=== PATIENT | female | born 1980 | race Caucasian/White ===

== ENCOUNTER → 2017-08-06 09:13 | Outpatient (CLI) | payer OTHER, SELFPAY ==
[2017-08-06 11:20] LABS: hCG Titer Quant., Serum 3653 mIU/mL (<9 non-preg)
[2017-08-06 20:30] LABS: Chlamydia Trachomatis by PCR Negative (Negative); Neisserai gonorrhoeae by PCR Negative (Negative); Probe Check PASS; Sample Adequacy Control PASS; Specimen Processing Control PASS
[2017-08-11 11:07] LABS: HPV APTIMA, High Risk Negative (Negative)
== END ==
PROVIDERS: Visit Provider Obstetrics & Gynecology
DX: Z12.4 Encounter for screening for malignant neoplasm of cervix (principal); Z34.90 Encounter for supervision of normal pregnancy, unspecified, unspecified trimester
CPT/HCPCS: 36415; 84702; 87086; 87088; 87491; 87591; 88175; G0145

== ENCOUNTER → 2017-08-08 08:22 | Outpatient (CLI) | payer OTHER, SELFPAY ==
[2017-08-08 10:25] LABS: hCG Titer Quant., Serum 4265 mIU/mL (<9 non-preg)
== END ==
PROVIDERS: Visit Provider Obstetrics & Gynecology
DX: Z34.90 Encounter for supervision of normal pregnancy, unspecified, unspecified trimester (principal)
CPT/HCPCS: 84702

== ENCOUNTER → 2017-08-10 15:04 | Outpatient (CLI) | payer OTHER, SELFPAY ==
[2017-08-10 16:28] LABS: hCG Titer Quant., Serum 4724 mIU/mL (<9 non-preg)
== END ==
PROVIDERS: Visit Provider Obstetrics & Gynecology
DX: O20.0 Threatened abortion (principal); Z3A.00 Weeks of gestation of pregnancy not specified
CPT/HCPCS: 36415; 84702; 86850; 86900

== ENCOUNTER → 2018-01-18 08:58 | Outpatient (CLI) | payer OTHER, SELFPAY ==
[2018-01-21 09:34] LABS: Hemoglobin A1c 5.5 % (4.2-6.3)
== END ==
PROVIDERS: Family Provider Family Medicine; PCP Family Medicine; Visit Provider Family Medicine
DX: Z00.00 Encounter for general adult medical examination without abnormal findings (principal)
CPT/HCPCS: 83036

== ENCOUNTER → 2020-01-08 08:56 | Outpatient (CLI) | payer OTHER, SELFPAY ==
[2020-01-08 08:28] VITALS: BMI 38.1
[2020-01-08 12:19] LABS: Absolute Lymphocyte Count 2.43 X10^3/uL (0.83-4.51); Absolute Neutrophil Count 3.2 X10^3/uL (2.0-7.7); Basophil# 0.02 X10^3/uL; Basophil% 0.3 % (0-1); Eosinophil# 0.15 X10^3/uL; Eosinophils% 2.4 % (0-5); Hemoglobin 13.9 g/dL (12.0-15.0); Lymphocyte # 2.43 X10^3/ul; Lymphocyte % 38.8 % (19-41); Mean Corp Hgb Conc 32.3 g/dL (32-36); Mean Corpuscular Hgb 30.2 pg (27.0-32.0); Mean Corpuscular Volume 93.5 fL (81-99); Mean Platelet Vol. 10.4 fl (6.2-12.0); Monocyte# 0.41 X10^3/uL; Monocyte% 6.5 % (0-10); NRBC Flagged by Analyzer 0 % (0-5); Neutrophil # 3.24 X10^3/uL (2.7-7.7); Neutrophil % 51.8 % (47-70); Platelet Count 237 K/mm3 (150-450); RBC Distribution Width CV 11.8 % (11.6-14.6); RBC Distribution Width SD 39.8 fl (35.1-43.9); White Blood Count 6.3 K/mm3 (4.4-11.0)
[2020-01-08 12:21] LABS: Color, Urine Yellow (Yellow); Glucose, Dipstick Normal (Normal); Ketone-Dipstick Negative (Negative); Leukocyte Esterase-Dipstick 100 /ul (Negative); Nitrite-Dipstick Negative (Negative); Occult Blood-Urine Negative /ul (Negative); Protein-Dipstick 15 mg/dl (Negative); Specific Gravity, Urine 1.025 (1.002-1.030); Urine Bilirubin Dipstick Negative (Negative); Urine Clarity Sl. Cloudy (Clear); Urine Urobilinogen Normal (Normal)
[2020-01-08 12:51] LABS: ALB/GLOB Ratio 1.1 RATIO (0.9-2.4); AST(SGOT) 19 U/L (15-37); Alanine Aminotransfer ALT/SGPT 35 U/L (13-56); Albumin, Serum 3.9 g/dL (3.2-5.0); Alkaline Phosphatase 67 U/L (45-117); Anion Gap 7 (5-15); BUN 14 mg/dL (7-18); BUN/Creat Ratio 13.9 RATIO (10-20); Bilirubin, Direct 0.07 mg/dL (0.00-0.30); Calcium,Total 8.6 mg/dL (8.5-10.1); Chloride 107 mmol/L (98-107); Cholesterol 252 mg/dL (200); Creatinine, Serum 1.01 mg/dL (0.55-1.02); EST Glomerular Filtration Rate 64 mL/min (>60); Est Glom Filt Rate - Afr Amer 78 mL/min (>60); Globulin 3.5 g/dL (2.2-4.2); Glucose 110 mg/dL (74-106); High Density Lipoprotein 36 mg/dL; LDH 194 U/L (84-246); Potassium 4.2 mmol/L (3.5-5.1); Protein, Total 7.4 g/dL (6.4-8.2); Sodium Level 139 mmol/L (136-145); Triglycerides 475 mg/dL; Uric Acid 6.5 mg/dL (2.6-6.0)
[2020-01-08 13:28] LABS: Hemoglobin A1c 5.6 % (3.8-5.6)
== END ==
PROVIDERS: PCP Internal Medicine; Referring Provider Internal Medicine; Visit Provider Internal Medicine
DX: R73.03 Prediabetes (principal)
CPT/HCPCS: 83036

== ENCOUNTER 2021-09-29 08:06 | Outpatient (RCR) | payer OTHER, SELFPAY | END 2021-10-04 23:59 | LOC: NS 08:06 | PROVIDERS: PCP Internal Medicine; Referring Provider Internal Medicine; Visit Provider Internal Medicine | DX: Z71.3 Dietary counseling and surveillance (principal); E66.9 Obesity, unspecified; Z68.41 Body mass index [BMI] 40.0-44.9, adult | CPT/HCPCS: 97802 ==

== ENCOUNTER → 2021-10-01 | Outpatient (CLI) | payer OTHER, SELFPAY ==
--- NOTE | 2021-10-01 16:45 | RAD_ITS ---
STUDY: X-RAY - LEFT FOOT CLINICAL: Female, 41 years old. PLANTAR FASCIITIS TECHNIQUE: 3 view(s) of the foot. COMPARISON: None. FINDINGS: Normal talus, calcaneus, and tarsal bones. Small plantar posterior calcaneal enthesophytes. Normal visualized subtalar, talonavicular, calcaneocuboid, tarsal and tarsometatarsal articulations. Normal metatarsi. There is degenerative arthrosis of the metatarsophalangeal joint of the hallux with a hallux valgus deformity. Normal tibial and fibular sesamoid bones. Normal interphalangeal joint of the great toe. Normal phalanges of the great toe. Normal second through fifth metatarsophalangeal joints. Normal interphalangeal joints and phalanges of the lesser toes. The soft tissue structures are unremarkable. RAD/Foot min 3 Views IMPRESSION: Moderate hallux valgus deformity. Electronically Signed: John Amos MD at 8:24 EDT ,
--- NOTE | 2021-10-01 16:45 | RAD_ITS ---
STUDY: X-RAY - RIGHT FOOT CLINICAL: Female, 41 years old. PLANTAR FASCIITIS TECHNIQUE: 3 view(s) of the foot. COMPARISON: None. FINDINGS: Normal talus, calcaneus, and tarsal bones. Small plantar and posterior calcaneal enthesophytes. Normal visualized subtalar, talonavicular, calcaneocuboid, tarsal and tarsometatarsal articulations. Normal metatarsi. There is degenerative arthrosis of the metatarsophalangeal joint of the hallux with a hallux valgus deformity. Normal tibial and fibular sesamoid bones. Normal interphalangeal joint of the great toe. Normal phalanges of the great toe. Normal second through fifth metatarsophalangeal joints. Normal interphalangeal joints and phalanges of the lesser toes. The soft tissue structures are unremarkable. RAD/Foot min 3 Views IMPRESSION: Mild hallux valgus deformity. Electronically Signed: John Amos MD at 17:17 EDT ,
--- NOTE | 2021-10-01 16:50 | RAD_ITS ---
STUDY: X-RAY - RIGHT ANKLE REASON FOR EXAM: Female, 41 years old. INSTABILITY TECHNIQUE: 3 view(s) of the ankle. COMPARISON: None. FINDINGS: Normal visualized distal tibia and fibula. Normal medial and lateral malleoli. Normal tibiotalar articulation and ankle mortise. Normal visualized talus and calcaneus. The visualized subtalar, talonavicular, calcaneocuboid and tarsal articulations are normal. The soft tissue structures are unremarkable. RAD/Ankle min 3 Views IMPRESSION: Normal x-ray examination of the ankle. Electronically Signed: John Amos MD at 8:24 EDT ,
== END | disposition home or self-care (01) ==
LOC: RAD 16:44
PROVIDERS: PCP Internal Medicine; Referring Provider Podiatrist; Visit Provider Podiatrist
DX: M72.2 Plantar fascial fibromatosis (principal); M20.11 Hallux valgus (acquired), right foot; M20.12 Hallux valgus (acquired), left foot; M25.371 Other instability, right ankle
CPT/HCPCS: 73610; 73630

== ENCOUNTER 2021-10-15 07:46 | Outpatient (RCR) | payer OTHER, SELFPAY | END 2021-11-04 23:59 | LOC: NS 07:46 | PROVIDERS: PCP Internal Medicine; Referring Provider Internal Medicine; Visit Provider Internal Medicine | DX: Z71.3 Dietary counseling and surveillance (principal); E66.9 Obesity, unspecified; Z68.41 Body mass index [BMI] 40.0-44.9, adult | CPT/HCPCS: 97803 ==

== ENCOUNTER 2021-11-18 07:30 | Outpatient (RCR) | payer OTHER, SELFPAY | END 2021-12-04 23:59 | LOC: NS 07:30 | PROVIDERS: PCP Internal Medicine; Referring Provider Internal Medicine; Visit Provider Internal Medicine | DX: Z71.3 Dietary counseling and surveillance (principal); E66.9 Obesity, unspecified; Z68.41 Body mass index [BMI] 40.0-44.9, adult | CPT/HCPCS: 97803 ==

== ENCOUNTER → 2022-03-16 | Outpatient (CLI) | payer OTHER, SELFPAY ==
[2022-03-17 14:42] LABS: Hemoglobin A1c 5.9 % (3.8-5.6)
== END | disposition home or self-care (01) ==
LOC: BIMLAB 03-17 14:04
PROVIDERS: PCP Internal Medicine; Visit Provider Internal Medicine
DX: R73.01 Impaired fasting glucose (principal)
CPT/HCPCS: 83036

== ENCOUNTER 2023-05-28 07:32 | Day surgery (SDC) | payer OTHER, SELFPAY ==
[2023-05-28 07:50] VITALS: BP 158/115; PULSE 93; RESP 16; TEMP 36.2; O2SAT 99; BMI 39.8
--- NOTE | 2023-05-28 09:20 | LES_PTH ---
PATIENT: DON JONES LOC: [facility] – [place] U#:[id number] AGE/SX: 42/F ROOM: RE05/28/[address]: Dr. Radha Riojas MD : 1980 BED: DIS: 05/28/2023 SPEC #: [id number] RECD: 05/28/23 12:33 STATUS: SHAYNA CAS #: [id number] PATTI: 05/28/23 09:[address]: Radha Riojas DEPT: SURGICAL PATHOLOGY RECD BY: Ladonna Zavaleta ENTERED: 05/28/23 12:35 SP TYPE: Lesion OTHR DR: Dr. Tim Fuentes MD Tissues: Skin of upper extremity and shoulder Procedures: Surgery Specimen Level IV HEADER OPERATION: Excision lesion right posterior shoulder (2.5 cm) PRE-OP DIAGNOSIS: Neoplasm of shoulder TISSUE SUBMITTED: Right posterior shoulder lesion MICROSCOPIC DIAGNOSIS Right posterior shoulder lesion, excisional biopsy: Dermatofibroma. SJ:bhavani 06/01/2023 MICROSCOPIC DESCRIPTION Slides are reviewed. GROSS DESCRIPTION Received in fixative is one container labeled with the patient's name and designated right posterior shoulder lesion. The specimen consists of a round piece of wallace-brown skin measuring 1.3 x 1.3 cm and up to 0.4 cm in thickness. The specimen is inked, serially sectioned and submitted entirely in one cassette. / SWETA:bhavani 05/28/2023 TC:1 [facility]: [id number]
--- NOTE | 2023-05-28 09:56 | HP.PCM_ITS ---
HPI - General General Date of Service: 05/28/23 Chief Complaint: Lesion of right shoulder [facility] Narrative DON CLARK, is a 42 F who presents with a progressively growing lesion of the right posterior shoulder. She presents for excision of the site and submission for pathologic evaluation. [facility] Medical History (Updated 04/20/23 @ 15:[address] Radha Riojas MD) Elevated fasting blood sugar Elevated liver enzymes Health care maintenance Hyperlipidemia Hypertension Left foot pain Metabolic syndrome Morbid obesity Obesity (BMI 30-39.9) Home Medications NK 05/28/23 [History Last Taken Unknown] Allergy/AdvReac Type Severity Reaction Status Date / Time No Known Allergies Allergy Verified 05/28/23 07:49 Family History Father Heart disease Diabetes Grandfather Endometriosis Heart disease Grandmother Cancer Surgical History History of wisdom tooth extraction, class II edentulism Social History (Updated 04/20/23 @ 13:52 by Gabby Benitez) Smoking Status: Never smoker Tobacco: How many years used: 15 alcohol intake: never details: on ocassion substance use type: does not use caffeine: No what type of physical activity do you participate in: walking seatbelt use: always do you feel safe at home: Yes additional social history: Pt denies vaping, denies edibles, denies aspirin use, denies ibuprofen Vital Signs Vital Signs Vital Signs: 05/28/23 07:50 05/28/23 07:50 Temperature 97.2 F L Temperature Source Temporal Pulse Rate 93 Respiratory Rate 16 Respiratory Pattern Normal Blood Pressure 158/115 H Blood Pressure Mean 129 Blood Pressure Source Monitor Blood Pressure Position Semi-Fowlers Pulse Ox 99 Oxygen Delivery Method Room Air Weight Weight: 239 lb 6.752 oz Body Mass Index (BMI) 39.8 Physical Exam Const alert, oriented x3, no apparent distress, average body habitus and well nourished General Appearance: cooperative and well developed Orientation / Consciousness: oriented to person, oriented to place and oriented to time HEENT head/scalp atraumatic, external ears normal and external nose normal Head and Scalp: normal to inspection, normocephalic, atraumatic and abrasion Face and Sinus: normal facial exam and face symmetric Nose: external nose normal External Ear: external ears normal External Auditory Canal: EAC's normal Mouth: lips normal Eyes PERRL, EOMs intact bilaterally and conjunctivae normal General Eye: normal appearance of both eyes Periorbital: periorbital findings normal Eyelid: eyelids normal Conjunctiva: conjunctiva normal Pupil: PERRL Neck full ROM Lymph Lymphatic: no lymphadenopathy noted Chest inspection of chest normal Breast/Axilla Palpation: no axillary lymphadenopathy Resp normal respiratory effort, normal air movement and clear to auscultation bilaterally Auscultation: clear to auscultation bilaterally Cardio regular rate, regular rhythm, S1 normal heart sound, S2 normal heart sound and no murmurs Rate: regular rate Rhythm: regular rhythm GI soft to palpation and non-tender Extremity normal to inspection and full ROM General Extremity: normal exam except as noted Skin Skin Narrative: Pigmented firm intradermal skin lesion of the posterior right shoulder General Skin Exam: turgor normal Neuro oriented x3, CN's II-XII intact bilaterally, moves all extremities, no focal motor deficits and no sensory deficits noted Sensorium / Orientation: awake, alert, oriented to person, oriented to place and oriented to time Speech: speech normal Gait (Neuro): normal gait Psych mental status grossly normal Attention / Concentration: concentration grossly intact Memory / Cognition: memory grossly intact Assessment & Plan Assessment/Plan (1) Neoplasm of uncertain behavior of skin: PLAN: Plan For excision skin lesion and submission for pathologic evaluation.
[2023-05-28 09:58] VITALS: BP 138/97; BP 143/98; O2SAT 100; O2SAT 98; O2SAT 99
[2023-05-28 10:18] VITALS: BP 130/88; BP 138/97; O2SAT 100; O2SAT 98; O2SAT 99
[2023-05-28] MEDS: Lidocaine 1% /Epi 1:100 9 ML, Sodium Bicarbonate 1 MEQ OPERA.SITE (10:39)
--- NOTE | 2023-05-28 10:43 | DCINST_ITS ---
Discharge Instructions Dressing / Incision Additional Dressing/Incision Instructions:: May shower over the area, but do not scrub. If the dressing falls off, you may shower over the area and replace a bandaid daily. Take the oral antibiotic (Keflex) 2 x a day until finished. Sleep in a recliner position for the next 2-3 nights to avoid pressure or stretching the area. Follow Up Care Please Follow Up With: Radha Riojas MD When: in 1-2 weeks Test Results: Test results from this visit will be discussed in further detail at your follow- up appointment, if applicable. Discharge Plan Admission Attending Provider: Radha Riojas Primary Care Provider: Tim Fuentes Discharge Orders/Prescriptions Prescriptions: New cephalexin 500 mg capsule 500 mg PO BID 7 Days Qty: 14 0RF Referrals / Follow Up: Tim Fuentes MD [Primary Care Provider] - Disposition Disposition (needs filled in before D/C Order can be placed): Home, Self Care
--- NOTE | 2023-05-28 10:47 | PCM.OPRPT ---
Problems Associated Problem List Diagnoses (1) Neoplasm of uncertain behavior of skin: Report of Operation Date of Procedure: 05/28/23 Pre-Operative Diagnosis: lesion of right posterior shoulder Post-Operative Diagnosis: same Surgery/Procedure Performed:: Excision lesion right posterior shoulder (2.5cm) with intermediate closure Surgeon: Radha Riojas Type of Anesthesia: Local Specimen's removed: skin lesion Estimated Blood Loss (mL): minimal Description of Procedure: The patient presents with a growing or changing lesion of the right posterior shoulder. She presents for excision of the lesion with submission for pathologic evaluation. Procedure: The patient was brought to the operating room and placed on the operating room table in left lateral decubitus position. The right posterior shoulder was prepped and draped in the usual sterile fashion. We initially began with injecting the periphery of the site with 1% Xylocaine with epinephrine buffered with sodium bicarb. Following this, the lesion is excised and passed off the operative field to be sent to pathology. Hemostasis is controlled with cautery. Wound closure is then accomplished using a 3-0 Monocryl suture in the subcutaneous tissue and dermis using [id number] sutures. Skin edges are approximated with a running subcuticular Monocryl suture. Further reinforcement the closure is done with interrupted Prolene suture. Dermabond and Steri-Strips are placed on the wound along with a Tegaderm. She tolerated the procedure well was taken to the recovery area in an awake and stable condition. Needle and sponge counts are correct. Complications None Admit VTE Documentation VTE Mechan Device Prophylaxis: None Reason prophylaxis not ordered:: Treatment Not Indicated
== END 2023-05-28 11:05 | disposition home or self-care (01) ==
LOC: SDC 07:33 → AC 07:35
PROVIDERS: PCP Internal Medicine; Referring Provider Plastic Surgery; Visit Provider Plastic Surgery
PROC: (CPT 12031; principal; 2023-05-28 09:10)
DX: D23.61 Other benign neoplasm of skin of right upper limb, including shoulder (principal); E78.5 Hyperlipidemia, unspecified; I10 Essential (primary) hypertension
CPT/HCPCS: 12031; 88305

== ENCOUNTER → 2023-10-28 | Outpatient (CLI) | payer OTHER, SELFPAY ==
[2023-10-28 12:41] LABS: Hemoglobin A1c 5.5 % (3.8-5.6)
[2023-10-28 12:45] LABS: Thyroid Stim Hormone (TSH) 2.56 uIU/mL (0.358-3.74)
== END | disposition home or self-care (01) ==
LOC: BIMLAB 08:50
PROVIDERS: PCP Internal Medicine; Visit Provider Nurse Practitioner
DX: I10 Essential (primary) hypertension (principal); R73.01 Impaired fasting glucose; E78.2 Mixed hyperlipidemia
CPT/HCPCS: 36415; 83036; 84439; 84443

== ENCOUNTER → 2024-02-03 | Outpatient (CLI) | payer OTHER, SELFPAY ==
--- NOTE | 2024-02-03 16:45 | RAD_ITS ---
EXAM: XR RIGHT ANKLE COMPLETE, 3 OR MORE VIEWS CLINICAL INDICATION: pain TECHNIQUE: Frontal, lateral and oblique views of the right ankle. COMPARISON: XR Ankle dated 10/01/2021 FINDINGS: BONES/JOINTS: No acute fracture or subluxation. Bony spurring along the anterior distal portion of the tibia again noted as well as plantar calcaneal spur. SOFT TISSUES: Prominent soft tissue swelling. No radiopaque foreign body. RAD/Ankle min 3 Views IMPRESSION: No acute bone or joint abnormality. Soft tissue swelling. Electronically Signed: Laci Canada MD at 9:31 EDT ,
== END | disposition home or self-care (01) ==
PROVIDERS: PCP Internal Medicine; Referring Provider Orthopaedic Surgery Sports Medicine; Visit Provider Orthopaedic Surgery Sports Medicine
DX: M25.571 Pain in right ankle and joints of right foot (principal)
CPT/HCPCS: 73610

== ENCOUNTER → 2025-02-26 | Outpatient (CLI) | payer OTHER, SELFPAY ==
--- OUTSIDE RECORDS SUMMARY | 2025-02-26 13:58 | XMS RPT_ITS | CCD ---
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 Tim Fuentes Primary Care Provider [phone] Alfredo, Dr. Dumont Referring Provider [phone] Dr. Siva Cook Attending Provider Dr. Tim Fuentes Attending Provider [phone] Alfredo, Dr. Dumont Primary Care Provider [phone] Dr. Tim Fuentes Referring Provider [phone] Alfredo, Dr. Dumont Primary Care Provider [phone] Alfredo, Dr. Dumont Attending Provider [phone] Alfredo, Dr. Dumont Referring Provider [phone] Alfredo, Dr. Dumont Primary Care Provider 1([phone]) Dr. Tim Fuentes Referring Provider [phone] Dr. Radha Riojas Attending Provider Dr. Radha Riojas Referring Provider [phone] Dr. Radha Riojas Other Provider Radha Riojas Attending Unavailable Alfredo, Efewongbe Primary Care Unavailable Oleghe, Efewongbe Referring Unavailable Dayron Dickerson Attending Unavailable Oleghe, Efewongbe Primary Care Unavailable Radha Riojas Attending Unavailable Radha Riojas Referring Unavailable Laithe, Efewongbe Primary Care Unavailable Oleghe, Efewongbe Primary Care Unavailable Martha Breen Attending Unavailable Oleghe, Efewongbe Primary Care Unavailable Assessment, Health Risk Attending Unavaila ble Assessment, Health Risk Referring Unavaila ble Oleghe, Efewongbe Primary Care Unavailable Jonah Marlow Attending Unavailable Jonah Marlow Referring Unavailable Oleghe, Efewongbe Primary Care Unavailable Maddy Will Attending Unavailable Oleghe, Efewongbe Referring Unavailable Radha Riojas Attending Unavailable GeorgeazoRadha coppola Referring Unavailable Oleghe, Efewongbe Primary Care Unavailable Ahmet Riojasa Consulting Unavailable Oleghe, Efewongbe Primary Care Unavailable Radha Riojas Attending Unavailable Oleghe, Efewongbe Referring Unavailable Oleghe, Efewongbe Primary Care Unavailable Martha Breen Attending Unavailable Oleghe, Efewongbe Referring Unavailable Oleghe, Efewongbe Primary Care Unavailable Isabel Trinidad Attending Unavailable Oleghe, Efewongbe Referring Unavailable Oleghe, Efewongbe Primary Care Unavailable Jonah Marlow Attending Unavailable Oleghe, Efewongbe Referring Unavailable Oleghe, Efewongbe Primary Care Unavailable Oleghe, Efewongbe Attending Unavailable Oleghe, Efewongbe Referring Unavailable Medications Current Medications Medication Drug Class(es) Dates Sig (Normalized) Sig (Original) cephalexin 500 mg oral capsule (1 source) Cephalosporin Antibacterial Start: 05-28-2023 take 500 mg by mouth twice daily Cephalexin Active 500 MG PO TWICE A DAY 18 12May 28, 2023 12:00am Completed/Discontinued Medications Medication Drug Class(es) Dates Sig (Normalized) Sig (Original) acetaminophen 325 mg / oxyCODONE hydrochloride 5 mg oral tablet (6 sources) Opioid Agonist Start: 08-12-2017 End: 08-19-2017 take 1 tablet by mouth once Oxycodone-Acetamin ophen (Percocet) 5-325 mg tablet Discontinued 1 TABLET PO ONCE August 12, 2017 August 18, 2017 11:06pm losartan potassium 50 mg oral tablet (2 sources) Angiotensin 2 Receptor Sienna Start: 03-17-2022 End: 04-20-2023 take 50 mg by mouth once daily Losartan Discontinued 50 MG PO DAILY March 16, 2022 11:00pm April 20, 2023 1:50pm miSOPROStol 0.2 mg oral tablet (6 sources) Prostaglandin E1 Analog Start: 08-12-2017 End: 12-19-2018 take 4 tablets by mouth once Misoprostol (Cytotec) 200 mcg tablet Discontinued 800 MCG PO .complex 4 August 12, 2017 12:00am December 19, 2018 12:07pm 4 tablets vaginally or orally once. omeprazole 40 mg delayed release oral capsule (6 sources) Proton Pump Inhibitor Start: 12-19-2018 End: 01-08-2020 take 40 mg by mouth once daily Omeprazole Discontinued 40 MG PO DAILY 60 December 18, 2018 11:00pm January 08, 2020 7:25am Prenat.Vits,Milad,Min -Iron-Folic ( Vitamin) tablet (6 sources) Start: 08-06-2017 End: 12-19-2018 take 1 tablet by mouth once daily Prenat.Vits,Milad,Mi l-Fjsc-Gfvby ( Vitamin) tablet Discontinued 1 TABLET PO daily August 06, 2017 9:34am December 19, 2018 1:02pm Start: 08-06-2017 End: 12-19-2018 take 1 tablet by mouth once daily Prenat.Vits,Milad,Gke-Nfih-Ofgbv ( Vitamin) tablet Discontinued 1 TABLET PO daily August 06, 2017 12:00am December 19, 2018 12:02pm Start: 08-06-2017 End: 12-19-2018 take 1 tablet by mouth once daily Prenat.Vits,Milad,Zfv-Ldtu-Ofjdh ( Vitamin) tablet Discontinued 1 TABLET PO daily August 06, 2017 1:00am December 19, 2018 1:02pm Tirzepatide (Mounjaro) 2.5 mg/0.5 mL pen injector (2 sources) Start: 03-17-2022 End: 04-14-2022 Tirzepatide (Mounjaro) 2.5 mg/0.5 mL pen injector Discontinued 2.5 MG SC EVERY WEEK 08 04March 16, 2022 11:00pm April 14, 2022 12:03am Start: 03-17-2022 Tirzepatide (M ounjaro) 2.5 mg/0.5 mL pen injector Active 2.5 MG SC EVERY WEEK 08 04March 17, 2022 12:00am Problems Active Problems Problem Classification Problem Date Documented Da te Episodic/Chronic Disorders of lipid metabolism (12 sources) Hyperlipidemia; Translations: [Hyperlipidemia, unspecified] Onset: 03-06-2024 Chronic Essential hypertension (12 sources) Hypertensive disorder; Translations: [Essential (primary) hypertension] Onset: 03-06-2024 Chronic Other complications of (6 sources) Missed miscarriage; Translations: [Missed ] 08-12-2017 Episodic Other connective tissue disease (6 sources) Foot pain; Translations: [Pain in left foot] 09-02-2021 Episodic Other connective tissue disease (4 sources) Pain in left foot; Translations: [Pain in limb] Episodic Other liver diseases (2 sources) Elevated liver enzymes level; Translations: [Abnormal levels of other serum enzymes] 03-17-2022 Episodic Other liver diseases (2 sources) Abnormal levels of other serum enzymes; Translations: [Other nonspecific abnormal serum enzyme levels] Onset: 03-06-2024 Episodic Other non-traumatic joint disorders (1 source) Pain in right ankle and joints of right foot; Translations: [Pain in right ankle and joints of right foot] Onset: 02-12-2024 Episodic Other nutritional; endocrine; and metabolic disorders (6 sources) Body mass index 30+ - obesity; Translations: [Obesity, unspecified] 09-02-2021 Chronic Other nutritional; endocrine; and metabolic disorders (5 sources) Obesity, unspecified; Translations: [Obesity, unspecified] Onset: 03-06-2024 Chronic Other nutritional; endocrine; and metabolic disorders (2 sources) Morbid obesity; Translations: [Morbid (severe) obesity due to excess calories] 03-17-2022 Chronic Other nutritional; endocrine; and metabolic disorders (2 sources) Metabolic syndrome X; Translations: [Metabolic syndrome] 03-17-2022 Chronic Other nutritional; endocrine; and metabolic disorders (2 sources) Metabolic syndrome; Translations: [Dysmetabolic syndrome X] Onset: 03-06-2024 Chronic Other nutritional; endocrine; and metabolic disorders (2 sources) Morbid (severe) obesity due to excess calories; Translations: [Morbid obesity] Onset: 03-06-2024 Chronic Other and delivery including normal (6 sources) Early stage of ; Translations: [Encounter for supervision of normal , unspecified, unspecified trimester] 08-12-2017 Episodic Other screening for suspected conditions (not mental disorders or infectious disease) (1 source) Encounter for screening for malignant neoplasm of colon; Translations: [Encounter for screening for malignant neoplasm of colon] Onset: 04-07-2024 Episodic Sprains and strains (1 source) Sprain of unspecified ligament of right ankle, initial encounter; Translations: [Sprain of unspecified ligament of right ankle, initial encounter] Onset: 02-04-2024 Episodic Unclassified (1 source) Insulin resistance, unspecified; Translations: [Insulin resistance, unspecified] Onset: 11-04-2023 Past or Other Problems Problem Classification Problem Date Documented Da te Episodic/Chronic Diabetes mellitus without complication (4 sources) Hyperglycemia; Translations: [Impaired fasting glucose] Onset: 11-04-2023 Episodic Neoplasms of unspecified nature or uncertain behavior (5 sources) Neoplasm of uncertain behavior of skin; Translations: [Neoplasm of uncertain behavior of skin] Onset: 06-16-2023 04-20-2023 Episodic Results Test Name Value Interpretation Reference Range Facility Internal Medicine Office Vis [facility] 04-07-2024 Internal Medicine Office Visit [facility] [address] [place] [address] OFFICE VISIT Date of Service: 04/07/24 MR#: [id number] Acct: [id number] Name: LAQUITA CLARKDON MOISÉS Rep #: [id number] : 1980 Provider: Dr. Tim schultz MD Age/Sex: 43/F Location[place] [facility] [place] Status: Signed Intake Vital Signs 02/04/24 08:08 03/24/24 11:10 04/07/24 09:07 04/07/24 09:09 Height 5 ft 5 in 5 ft 5 in 5 ft 5 in Weight: 258 lb BMI 42.9 BP 142/86 H Blood Pressure Location Lt brachial Position Sitting Respiration 17 Pulse 100 93 Pulse Source Monitor Monitor Temp 97.8 F Temp Source Temporal Pulse Oximetry (%) 96 Oxygen Delivery Method room air Intake Visit Reasons: BP CONCERNS Chief Complaint: BP CONCERNS Is patient in pain?: No Allergies No Known Allergies Allergy (Verified 04/07/24 09:06) Medications ???Medication ???Instructions ???Recorded ???Confirmed ???Type nitrofurantoin 100 mg PO Q12H 5 days #10 caps 04/03/24 04/07/24 Rx monohydrate/macrocry stals 100 mg capsule (Macrobid) olmesartan 5 mg tablet 5 mg PO QDAY #30 tabs 04/07/24 04/07/24 Rx PFSH Medical History Right ankle sprain Metabolic syndrome Health care maintenance Morbid obesity Elevated liver enzymes Elevated fasting blood sugar Hypertension Obesity (BMI 30-39.9) Hyperlipidemia Left foot pain Surgical History History of wisdom tooth extraction, class II edentulism Family History Father Heart disease Diabetes Grandfather Endometriosis Heart disease Grandmother Cancer Social History Smoking Status: Former smoker quit date: 06/07/13 Tobacco: How many years used: 15 alcohol intake: never details: on ocassion substance use type: does not use caffeine: No what type of physical activity do you participate in: walking, running, yoga and weight training frequency: 3-4 times per week duration: 45-60 minutes/day seatbelt use: always do you feel safe at home: Yes additional social history: Pt denies vaping, denies edibles, denies aspirin use, denies ibuprofen HPI HPI Chief Complaint: BP CONCERNS Details: DON CLARK, is a 43 F who presents to the office today to discuss several concerns. She would also like her health assessment form signed. Chronic history of hypertension currently not on any medication. In the past, medication had been recommended but she was not open. Now open to this due to persistently elevated blood pressure. Blood pressure today at 142/86 mmHg. Also currently at a BMI of 42.9. An attempt had been made with Alex however she discontinued due to nausea. She states that she has tried to be active but does not consistently exercise. Also states that she pays particular attention to what she eats but does not note how many calories she is actually having. History of hyperlipidemia, also currently not on any medication. She is concerned about her weight and would like something to help with this. Follows up with [facility]. Not up-to-date on her age-appropriate screenings, yet to get a mammogram. No known family history of colon cancer. ROS Const Constitutional: No body ache, chills, excessive sweating, fatigue, fever(s), frequent falls, headache(s), snoring, weight change, sleep problems, abnormal sleep pattern or change in appetite Eyes Eyes: No blurry vision, change in vision, bulging eyes, floaters, visual disturbances, eye pain or Light sensitivity ENT ENT: No abnormal hearing, ear or mastoid pain, tinnitus, balance problems, nosebleed/epistaxis, nasal congestion, headache(s), neck pain or sore throat Resp Respiratory: No cough, excessive phlegm production, pain on inspiration, shortness of breath, snoring or wheezing Cardio Cardiology: No chest pain at rest, chest pain with exertion, excessive sweating, shortness of breath, dyspnea on exertion, lightheadedness, orthopnea or palpitations Gastro GI: No abdominal pain, change in bowel habits, constipation, cramping, diarrhea, nausea/dyspepsia or vomiting Genitourinary-Female : No burning urination, painful urination, urinary incontinence, urinary frequency, suprapubic fullness, side pain, abnormal vaginal bleeding or pelvic pain Musc Musculoskeletal: No abnormal gait, joint pain, back pain, limited range of motion, muscle cramps, neck pain, numbness or tingling Skin Skin: No dry skin, redness, excessive hair growth, yellowing of the eye, lesions, itchy eyes, rash or wounds Neuro Neurology: No abnormal gait, abnormal hearing, behavioral changes, confusion, unsteady gait/balance, frequent falls, headache(s), memor (more content not included)... Normal [facility] Office Visit Reporton 2023 Office Visit Report [facility] [address] [place] [address] OFFICE VISIT Date of Service: 04/03/24 MR#: [id number] Acct: [id number] Patient: DON JONES MOISÉS Rep #: [id number] : 1980 Provider: MARY Neri Age/Sex: 43/F Location: [facility] [place] Status: Signed Intake Vital Signs 03/24/24 11:10 Height 1.65 m Intake Visit Reasons: Pain Chief Complaint: dysuria Allergies No Known Allergies Allergy (Verified 02/04/24 08:09) [facility] Medical History Right ankle sprain Metabolic syndrome Health care maintenance Morbid obesity Elevated liver enzymes Elevated fasting blood sugar Hypertension Obesity (BMI 30-39.9) Hyperlipidemia Left foot pain Surgical History History of wisdom tooth extraction, class II edentulism Family History Father Heart disease Diabetes Grandfather Endometriosis Heart disease Grandmother Cancer Social History (Updated 02/04/24 @ 08:10 by Yanelis Jacome) Smoking Status: Former smoker quit date: 06/07/13 Tobacco: How many years used: 15 alcohol intake: never details: on ocassion substance use type: does not use caffeine: No what type of physical activity do you participate in: walking, running, yoga and weight training frequency: 3-4 times per week duration: 45-60 minutes/day seatbelt use: always do you feel safe at home: Yes additional social history: Pt denies vaping, denies edibles, denies aspirin use, denies ibuprofen HPI HPI Chief Complaint: dysuria Details: DON CLARK, is a 43 F who presents to the office today for dysuria. This began last night. She woke up with symptoms. She has dysuria, frequency, and urgency. No sujit hematuria. No flank pain. No fever/chills. No N/V/D. She has not taken anything for her symptoms. She has no recent abx use. She has had 1 uti in the past but it was years ago. ROS Const Constitutional: No chills, fatigue or fever(s) Genitourinary-Female : Positive for painful urination, urinary frequency and urinary urgency; No blood in urine or side pain Endo Endocrine: No fatigue Exam Const General: cooperative, healthy appearing, comfortable, no acute distress, well developed and well groomed Nutritional Appearance: average body habitus and well nourished Orientation: alert, awake and oriented x3 HENMT Head: normocephalic and atraumatic Musc Other: no cva tenderness Coding Level of Care Code Off vis,new,level 3 Diagnoses Acute UTI N39.0 Assessment and Plan Assessment and Plan (1) Acute UTI: Status: Acute Plan: Acute UTI - classic symptoms. start nitrofurantoin, pyridium prn. Disclaimer: This visit was performed virtually via live audio and video at the request of the patient. As such the physical exam and testing is limited by what is able to be seen through the patient's camera and lighting which may vary in quality, and limited by what the patient is able to perform via clinician instruction. If there is no significant improvement or new complications, the patient should follow up [id number] with a clinician of the appropriate level of care. Medications: New nitrofurantoin monohyd/m-cryst 100 mg (Macrobid) must administer with a meal/food 100 mg PO Q12H 5 days 10 caps 0RF 04/03/24 0743 Date Dayron Flores Signature: Date (if applicable) CC: Normal [facility] Orthopedic Visit Reporton Orthopedic Visit Report [facility] [address] [place] [address] OFFICE VISIT Date of Service: 02/04/24 MR#: [id number] Acct: [id number] Name: DON JONES MOISÉS Rep #: [id number] : 1980 Provider: Dr. Jonah schmitz MD Age/Sex: 43/F Location[place] [facility] Status: Signed Intake Vital Signs 12/15/23 15:11 02/03/24 12:50 02/04/24 08:08 Height 5 ft 5 in 5 ft 5 in 5 ft 5 in Weight: 252 lb 6 oz BMI 42.0 Intake Visit Reasons: RIGHT ANKLE Chief Complaint: fell on 01/21 Accompanied by: Self Is patient in pain?: Yes Pain scale (1-10): 4 Allergies No Known Allergies Allergy (Verified 02/04/24 08:09) Medications ???Medication ???Instructions ???Recorded ???Confirmed ???Type NK 02/04/24 02/04/24 History [facility] Medical History Right ankle sprain Metabolic syndrome Health care maintenance Morbid obesity Elevated liver enzymes Elevated fasting blood sugar Hypertension Obesity (BMI 30-39.9) Hyperlipidemia Left foot pain Surgical History History of wisdom tooth extraction, class II edentulism Family History Father Heart disease Diabetes Grandfather Endometriosis Heart disease Grandmother Cancer Social History (Updated 02/04/24 @ 08:10 by Yanelis Jacome) Smoking Status: Former smoker quit date: 06/07/13 Tobacco: How many years used: 15 alcohol intake: never details: on ocassion substance use type: does not use caffeine: No what type of physical activity do you participate in: walking, running, yoga and weight training frequency: 3-4 times per week duration: 45-60 minutes/day seatbelt use: always do you feel safe at home: Yes additional social history: Pt denies vaping, denies edibles, denies aspirin use, denies ibuprofen HPI RIGHT ANKLE Details: This documentation accurately reflects the service provided and the decisions made by me, Dr. Jonah Marlow MD 02/04/24 6133. Part of today???s visit was documented by [ ], acting as scribe. DON CLARK is a 43 year old F here today for right ankle pain and inversion injury.2 weeks ago inverted. had an ankle sprain in crossfit a couple years ago. was walking in the parade. and it swelling. still walking on it, able to ambulate the day of. no brace. took some eccedrine. [employer] employee. minor issues, just wants to make sure nothing bad going on. slight lateral and dorsum of foot pain. only once. still working. full WB. Supplemental Info Right ankle x-rays obtained yesterday 3 views no acute abnormalities. There is signs of chronic avulsion injury at the medial malleolus joint space well-maintained no evidence of a fracture Coding Level of Care Code Off vis,new,level 3 Diagnoses Right ankle sprain S93.401A Assessment and Plan Assessment and Plan (1) Right ankle sprain: Status: Acute Plan: DON CLARK is a 43 year old F here today for right ankle pain and inversion injury. X-rays are negative this seems to be a moderate grade ankle sprain. Recommend rest ice anti- inflammatories activity modifications orthosis boot bracing taping or strapping. Made a physical therapy referral warned the patient this can occur with higher rates during the first 6 weeks. Patient to be weightbearing as tolerated do some strength training and brother proprioceptive exercises but no pivoting or twisting on the ankle and follow-up in 6 weeks time or PRN. they understood no further questions or concerns. Orders: Orders Ankle min 3 Views 02/03/24 M25.571 - Pain in right ankle and joints of right foot Referrals PT Referral S93.401A - Sprain of unspecified ligament of right ankle, initial encounter Ortho Exam General General: Yes no acute distress Neurologic: Yes alert and Yes oriented x3 Psychologic: Yes reasonable and appropriate Right Foot/Ankle Skin/Wound: Yes CDI and Soft Tissue Swelling; No Ecchymosis or Erythema Exam: present eversion normal and inversion normal; absent TTP Lateral Malleolus, TTP ATFL, TTP Medial Malleolus, TTP Deltoid Ligament, TTP Lisfranc Joint, TTP distal 5th metatarsal, tender to palpate calcaneofibular ligament, TTP Retrocalcaneal bursa, TTP Peroneal or peroneal snapping Dorsiflexion 0-20: 0 degrees Plantar Flexion 0-40: 40 degrees Compartments: Compartments: soft ROM: present pain with range of motion and none crepitus with range of motion Tests: Olivares Test: 1 and Squeeze Test: 1 Anterior Drawer: 0 Motor: Ankle Dorsiflextion: 5, Ankle Plantar Flexion: 5, Ankle Eversion: 5, Ankle Inversion: 5 and EHL: 5 Sensation: Deep Peroneal Nerve: I, Superficial Peroneal Nerve: I, Tibial Nerve: I, Sural Nerve: I and (more content not included)... Normal [facility] Ankle min 3 Viewson 02-03-20 Ankle min 3 Views [facility] [address] [place] [address] Ankle min 3 Views MR#: [id number] Acct: [id number] Name: DON JONES MOISÉS Rep #: [id number] : 1980 F 43 From: Laci Canada MD PCP: Dr. Tim Fuentes MD Status: REG CLI Study: Ankle min 3 Views Date of Exam: 02/03/24 Exam# [id number] Ordering Dr: Jonah Marlow MD [id number] EXAM: XR RIGHT ANKLE COMPLETE, 3 OR MORE VIEWS CLINICAL INDICATION: pain TECHNIQUE: Frontal, lateral and oblique views of the right ankle. COMPARISON: XR Ankle dated 10/01/2021 FINDINGS: BONES/JOINTS: No acute fracture or subluxation. Bony spurring along the anterior distal portion of the tibia again noted as well as plantar calcaneal spur. SOFT TISSUES: Prominent soft tissue swelling. No radiopaque foreign body. RAD/Ankle min 3 Views IMPRESSION: No acute bone or joint abnormality. Soft tissue swelling. Electronically Signed: Laci Canada MD at 9:31 EDT Reading Location ID and State: [address] [place] [address] Tel , Service support , CC: Dr. Tim Fuentes MD; Dr. Jonah Marlow MD Eeo Officer: Signed Normal [facility] Teletypist Office Visit Reporton 12-15-2023 Teletypist Office Visit Report [facility] [place] [address] [place] [address] OFFICE VISIT Date of Service: 12/15/23 MR#: [id number] Acct: [id number] Name: DON JONES MOISÉS Rep #: [id number] : 1980 Provider: CYNTHIA De Los Santos Age/Sex: 43/F [place] [facility] [place]: Signed Intake Vital Signs 10/28/23 07:56 11/08/23 11:54 12/15/23 14:57 12/15/23 15:11 Height 5 ft 5 in 5 ft 5 in 5 ft 5 in 5 ft 5 in Weight: 245 lb 8 oz 252 lb 4 oz BMI 40.8 42.0 BP 140/88 H 155/105 H Blood Pressure Location Lt brachial Position Sitting Respiration 16 Pulse 97 Pulse Source Monitor Temp 97.7 F L Pulse Oximetry (%) 98 Oxygen Delivery Method room air Intake Visit Reasons: PREV PT Ambulatory Nurse Required: No Is patient in pain?: No Allergies No Known Allergies Allergy (Verified 12/15/23 15:08) Last Menstrual Period: 04/07/17 Current gender identity: female Zika: Zika virus screening: Negative : No Have you fallen in the past year?: No PFSH PFS Medical History Metabolic syndrome Health care maintenance Morbid obesity Elevated liver enzymes Elevated fasting blood sugar Hypertension Obesity (BMI 30-39.9) Hyperlipidemia Left foot pain Surgical History History of wisdom tooth extraction, class II edentulism Family History Father Heart disease Diabetes Grandfather Endometriosis Heart disease Grandmother Cancer Social History (Updated 10/28/23 @ 07:56 by Angela Beebe MA) Smoking Status: Never smoker Tobacco: How many years used: 15 alcohol intake: never details: on ocassion substance use type: does not use caffeine: No what type of physical activity do you participate in: walking, running, yoga and weight training frequency: 3-4 times per week duration: 45-60 minutes/day seatbelt use: always do you feel safe at home: Yes additional social history: Pt denies vaping, denies edibles, denies aspirin use, denies ibuprofen History 4 Elective abortions Hx Para 2 Spontaneous abortions Hx # Term Pregnancies Ectopic pregnancies Hx # Pregnancies Multiple births # of living children Past Pregnancies Del. Date Name GA/Weeks Outcome Route Bth Weight Gen Labor Lgth Anesthesia Del Locatn Provider FOB Unknown 1998 Pati live - full term Unknown 2012 Chidi live - full term HPI PREV SM PT Details: DON CLARK is a 43 year old Female presenting for a weight management consultation. She is here to reduce her weight because she would like to feel healthier and be healthier; feel better about herself and prevent shelter chronic illness. She does currently regularly exercise; she reports this is inconsistent in the past but recently have been going 3 times a week. She does try to watch her diet as well and limit excessive fatty foods and processed. Did not tolerate Monjauro in the past. Female Reproductive History Last Menstrual Period: 04/07/17 Questions: metorrhagia: No, sexually active: Yes (condoms), dyspareunia: No and PCB: No ROS Const Denies chills, Denies fatigue, Denies fever(s), Denies lethargy, Denies snoring, Denies stops breathing during sleep, Denies weakness and Reports weight gain Eyes Denies blurry vision and Denies change in vision ENT Denies dizziness Card Denies chest pain and Denies dyspnea Resp Denies cough, Denies dyspnea and Denies snoring GI Denies abdominal pain, Denies constipation, Denies loose stools and Denies nausea Reports light periods (inconsistent) and Denies pelvic pain Musc Denies arthralgias, Denies atrophy and Denies joint swelling Skin/Breast Denies rash Neuro No dizziness and No weakness Psych Denies anxiety and Denies depression Endo Denies fatigue Aller/Immun Denies GI upset with certain foods Exam Const General: cooperative, healthy appearing, comfortable, no acute distress, well developed and well groomed Orientation: alert, awake and oriented x3 HENMT Head: normal to inspection Eyes General: appearance normal, both eyes and all related structures Neck Thyroid: thyroid normal Lymphatic: no lymphadenopathy noted Resp Effort Inspection: normal respiratory effort, able to speak in complete sentences and symmetric chest movement Auscultation: clear to auscultation bilaterally Cardio Rate: regular rate Rhythm: regular rhythm Heart Sounds: S1 normal and S2 normal GI Inspection: normal to inspection Palpation: soft Skin Lesions: no lesions Rashes: no rashes Neuro General: patient alert, patient awake, (more content not included)... Normal [facility] CBC, Employeeon 10-28-2023 Absolute Lymph 2.72 X10 3/uL Normal 0.83-4.51 [facility] Comment on above: Result Comment: . Performed By: #### L 500.2900, L400.0100, L100.0200 #### [facility] [address] [place], [address] Absolute Neut 4.9 X10 3/uL Normal 2.0-7.7 [facility] Comment on above: Result Comment: . Performed By: #### L 500.2900, L400.0100, L100.0200 #### [facility] [address] [place], [address] BASO# 0.04 X10 3/uL Normal [facility] Comment on above: Result Comment: . Performed By: #### L 500.2900, L400.0100, L100.0200 #### [facility] [address] [place], [address] Basophils/100 WBC (Bld) 0.5 % Normal 0-1 [facility] Comment on above: Result Comment: . Performed By: #### L 500.2900, L400.0100, L100.0200 #### [facility] [address] [place], [address] EOS# 0.31 X10 3/uL Normal [facility] Comment on above: Result Comment: . Performed By: #### L 500.2900, L400.0100, L100.0200 #### [facility] [address] [place], [address] Eosinophils/100 WBC (Bld) 3.6 % Normal 0-5 [facility] Comment on above: Result Comment: . Performed By: #### L 500.2900, L400.0100, L100.0200 #### [facility] [address] [place], [address] Erythrocyte distribution width (RBC) [Ratio] 12.0 % Normal 11.6-14.6 [facility] Comment on above: Result Comment: . Performed By: #### L 500.2900, L400.0100, L100.0200 #### [facility] [address] [place], [address] Hematocrit (Bld) [Volume fraction] 42.6 % Normal 37-47 [facility] Comment on above: Result Comment: . Performed By: #### L 500.2900, L400.0100, L100.0200 #### [facility] [address] [place], [address] Hemoglobin (Bld) [Mass/Vol] 13.8 g/dL Normal 12.0-15.0 [facility] Comment on above: Result Comment: . Performed By: #### L 500.2900, L400.0100, L100.0200 #### [facility] [address] [place], [address] LYMPH# 2.72 X10 3/ul Normal [facility] Comment on above: Result Comment: . Performed By: #### L 500.2900, L400.0100, L100.0200 #### [facility] [address] [place], [address] Lymphocytes/100 WBC (Bld) 31.5 % Normal 19-41 [facility] Comment on above: Result Comment: . Performed By: #### L 500.2900, L400.0100, L100.0200 #### [facility] [address] [place], [address] MCH (RBC) [Entitic mass] 29.6 pg Normal 27.0-32.0 [facility] Comment on above: Result Comment: . Performed By: #### L 500.2900, L400.0100, L100.0200 #### [facility] [address] [place], [address] MCHC (RBC) [Mass/Vol] 32.4 g/dL Normal 32-36 [facility] Comment on above: Result Comment: . Performed By: #### L 500.2900, L400.0100, L100.0200 #### [facility] [address] [place], [address] MCV (RBC) [Entitic vol] 91.4 fL Normal 81-99 [facility] Comment on above: Result Comment: . Performed By: #### L 500.2900, L400.0100, L100.0200 #### [facility] [address] [place], [address] MONO # 0.59 X10 3/uL Normal [facility] Comment on above: Result Comment: . Performed By: #### L 500.2900, L400.0100, L100.0200 #### [facility] [address] [place], [address] Monocytes/100 WBC (Bld) 6.8 % Normal 0-10 [facility] Comment on above: Result Comment: . Performed By: #### L 500.2900, L400.0100, L100.0200 #### [facility] [address] [place], [address] Neutrophil # 4.92 X10 3/uL Normal 2.7-7.7 [facility] Comment on above: Result Comment: . Performed By: #### L 500.2900, L400.0100, L100.0200 #### [facility] [address] [place], [address] Neutrophils/100 WBC (Bld) 57.0 % Normal 47-70 [facility] Comment on above: Result Comment: . Performed By: #### L 500.2900, L400.0100, L100.0200 #### [facility] [address] [place], [address] NRBC # 0.00 10 3/uL Normal 0-5 [facility] Comment on above: Result Comment: . Performed By: #### L 500.2900, L400.0100, L100.0200 #### [facility] [address] [place], [address] Nucleated RBC (Bld) [#/Vol] 0 10*3/uL Normal 0-5 [facility] Comment on above: Result Comment: . Performed By: #### L 500.2900, L400.0100, L100.0200 #### [facility] [address] [place], [address] Platelet mean volume (Bld) [Entitic vol] 10.0 fL Normal 6.2-12.0 [facility] Comment on above: Result Comment: . Performed By: #### L 500.2900, L400.0100, L100.0200 #### [facility] [address] [place], [address] Platelets (Bld) [#/Vol] 303 10*3/uL Normal 150-450 [facility] Comment on above: Result Comment: . Performed By: #### L 500.2900, L400.0100, L100.0200 #### [facility] [address] [place], [address] RBC (Bld) [#/Vol] 4.66 10*6/uL Normal 4.2-5.4 [facility] Comment on above: Result Comment: . Performed By: #### L 500.2900, L400.0100, L100.0200 #### [facility] [address] [place], [address] RDW SD 40.1 fl Normal 35.1-43.9 [facility] Comment on above: Result Comment: . Performed By: #### L 500.2900, L400.0100, L100.0200 #### [facility] [address] [place], [address] WBC (Bld) [#/Vol] 8.6 10*3/uL Normal 4.4-11.0 [facility] Comment on above: Result Comment: . Performed By: #### L 500.2900, L400.0100, L100.0200 #### [facility] [address] [place], [address] Employee Profile[employer] 4 Albumin [Mass/Vol] 3.6 g/dL Normal 3.2-5.0 [facility] Comment on above: Result Comment: . Performed By: #### L 500.2900, L400.0100, L100.0200 #### [facility] [address] [place], [address] Albumin/Globulin [Mass ratio] 1.0 {ratio} Normal 0.9-2.4 [facility] Comment on above: Result Comment: . Performed By: #### L 500.2900, L400.0100, L100.0200 #### [facility] [address] [place], [address] ALK P 76 U/L Normal 45-117 [facility] Comment on above: Result Comment: . Performed By: #### L 500.2900, L400.0100, L100.0200 #### [facility] [address] [place], [address] ALT [Catalytic activity/Vol] 37 U/L Normal 13-56 [facility] Comment on above: Result Comment: . Performed By: #### L 500.2900, L400.0100, L100.0200 #### [facility] [address] [place], [address] AST [Catalytic activity/Vol] 20 U/L Normal 15-37 [facility] Comment on above: Result Comment: . Performed By: #### L 500.2900, L400.0100, L100.0200 #### [facility] [address] [place], [address] Bilirubin [Mass/Vol] 0.20 mg/dL Normal 0.20-1.00 [facility] Comment on above: Result Comment: . For patients on eltrombopag therapy, use of Dimension [place] TBIL is not recommended. Performed By: #### L 500.2900, L400.0100, L100.0200 #### [facility] [address] [place], [address] Bilirubin.direct [Mass/Vol] 0.11 mg/dL Normal 0.00-0.30 [facility] Comment on above: Result Comment: . Performed By: #### L 500.2900, L400.0100, L100.0200 #### [facility] [address] [place], [address] BUN/CRE 14.1 RATIO Normal 10-20 [facility] Comment on above: Result Comment: . Performed By: #### L 500.2900, L400.0100, L100.0200 #### [facility] [address] [place], [address] CA,Total 9.0 mg/dL Normal 8.5-10.1 [facility] Comment on above: Result Comment: . Performed By: #### L 500.2900, L400.0100, L100.0200 #### [facility] [address] [place], [address] Chloride [Moles/Vol] 105 mmol/L Normal 98-107 [facility] Comment on above: Result Comment: . Performed By: #### L 500.2900, L400.0100, L100.0200 #### [facility] [address] [place], [address] CHOL:HDL 5.70 Normal [facility] Comment on above: Result Comment: . Performed By: #### L 500.2900, L400.0100, L100.0200 #### [facility] [address] [place], [address] Cholesterol [Mass/Vol] 224 mg/dL High 200 [facility] Comment on above: Result Comment: . <200 mg/dL Desirable 200-240 mg/dL Borderline >240 mg/dL High Risk Performed By: #### L 500.2900, L400.0100, L100.0200 #### [facility] [address] [place], [address] Cholesterol in HDL [Mass/Vol] 39 mg/dL Low [facility] Comment on above: Result Comment: . The drugs N-Acetylcysteine and Metamizole may falsely depress this assay. Reference Range HDL <40 mg/dL Low HDL Cholesterol HDL >or= 60 mg/dL High HDL Cholesterol Performed By: #### L 500.2900, L400.0100, L100.0200 #### [facility] [address] [place], [address] Cholesterol in LDL [Mass/Vol] 129 mg/dL Normal 0-130 [facility] Comment on above: Result Comment: . Performed By: #### L 500.2900, L400.0100, L100.0200 #### [facility] [address] [place], [address] Cholesterol in VLDL [Mass/Vol] 56 mg/dL High 5-40 [facility] Comment on above: Result Comment: . Performed By: #### L 500.2900, L400.0100, L100.0200 #### [facility] [address] [place], [address] CO2 [Moles/Vol] 24.0 mmol/L Normal 21.0-32.0 [facility] Comment on above: Result Comment: . Performed By: #### L 500.2900, L400.0100, L100.0200 #### [facility] [address] [place], [address] Creatinine [Mass/Vol] 0.92 mg/dL Normal 0.55-1.02 [facility] Comment on above: Result Comment: . The validity of the calculated GFR GFRAA in patients over 70 years has not been determined. Clinical correlation is essential. Performed By: #### L 500.2900, L400.0100, L100.0200 #### [facility] [address] [place], [address] EST GFR - AA 85 mL/min Normal >60 [facility] Comment on above: Result Comment: . GFR Calc Performed By: #### L 500.2900, L400.0100, L100.0200 #### [facility] [address] [place], [address] GAP 7 Normal 5-15 [facility] Comment on above: Result Comment: . Performed By: #### L 500.2900, L400.0100, L100.0200 #### [facility] [address] [place], [address] GFR/1.73 sq M.predicted among non-blacks MDRD (S/P/Bld) [Vol rate/Area] 70 mL/min/{1.73_m2} Normal >60 [facility] Comment on above: Result Comment: . Non- GFR Calc Performed By: #### L 500.2900, L400.0100, L100.0200 #### [facility] [address] [place], [address] Globulin (S) [Mass/Vol] 3.6 g/dL Normal 2.2-4.2 [facility] Comment on above: Result Comment: . Performed By: #### L 500.2900, L400.0100, L100.0200 #### [facility] [address] [place], [address] Glucose [Mass/Vol] 110 mg/dL High 74-106 [facility] Comment on above: Result Comment: . Fasting Glucose result from 100 to 125 mg/dL suggests IMPAIRED HOMEOSTASIS per A.D.A. criteria. Performed By: #### L 500.2900, L400.0100, L100.0200 #### [facility] [address] [place], [address] LDH 186 U/L Normal 84-246 [facility] Comment on above: Result Comment: . Performed By: #### L 500.2900, L400.0100, L100.0200 #### [facility] [address] [place], [address] Phosphate [Mass/Vol] 3.1 mg/dL Normal 2.5-4.9 [facility] Comment on above: Result Comment: . Performed By: #### L 500.2900, L400.0100, L100.0200 #### [facility] [address] [place], [address] Potassium [Moles/Vol] 4.4 mmol/L Normal 3.5-5.1 [facility] Comment on above: Result Comment: . Performed By: #### L 500.2900, L400.0100, L100.0200 #### [facility] [address] [place], [address] Sodium [Moles/Vol] 136 mmol/L Normal 136-145 [facility] Comment on above: Result Comment: . Performed By: #### L 500.2900, L400.0100, L100.0200 #### [facility] [address] [place], [address] T PROT 7.2 g/dL Normal 6.4-8.2 [facility] Comment on above: Result Comment: . Performed By: #### L 500.2900, L400.0100, L100.0200 #### [facility] [address] [place], [address] Triglyceride [Mass/Vol] 282 mg/dL High [facility] Comment on above: Result Comment: . The drugs N-Acetylcysteine and Metamizole may falsely depress this assay. Serum Triglycerides Reference Interval Normal <150 mg/dL Borderline high 150 - 199 mg/dL High 200 - 499 mg/dL Very High > or = 500 mg/dL Performed By: #### L 500.2900, L400.0100, L100.0200 #### [facility] [address] [place], [address] Urea nitrogen [Mass/Vol] 13 mg/dL Normal 7-18 [facility] Comment on above: Result Comment: . Performed By: #### L 500.2900, L400.0100, L100.0200 #### [facility] [address] [place], [address] URIC 5.5 mg/dL Normal 2.6-6.0 [facility] Comment on above: Result Comment: . The drugs N-Acetylcysteine and Metamizole may falsely depress this assay. Performed By: #### L 500.2900, L400.0100, L100.0200 #### [facility] [address] [place], [address] Hemoglobin A1con 10-28-2023 HbA1c (Bld) [Mass fraction] 5.5 % Normal 3.8-5.6 [facility] Comment on above: Result Comment: Norm al < 5.7 % Prediabetic 5.7 - 6.4 % Diabetic >or= 6.5 % Please note range changes. Performed By: #### L 501.9520, L501.9985, L506.0400 #### [facility] [address] [place], [address] Internal Medicine Office Vis itolisa 10-28-2023 Internal Medicine Office Visit [facility] [address] [place] [address] [place] [address] OFFICE VISIT Date of Service: 10/28/23 MR#: [id number] Acct: [id number] Name: DON JONES MOISÉS Rep #: [id number] : 1980 Provider: CYNTHIA estrada Age/Sex: 43/F Location: [facility] [place] Status: Signed Intake Vital Signs 06/09/23 12:05 10/28/23 07:56 Height 5 ft 5 in 5 ft 5 in Weight: 237 lb 245 lb 8 oz BMI 39.4 40.8 BP 139/94 H 140/88 H Blood Pressure Location Lt brachial Lt brachial Position Sitting Sitting Respiration 16 16 Pulse 89 97 Pulse Source Monitor Temp 97.5 F L 97.7 F L Temp Source Oral Temporal Pulse Oximetry (%) 96 98 Oxygen Delivery Method room air room air Intake Visit Reasons: Booked from other vendor Chief Complaint: weight loss concerns Ambulatory Nurse Required: No Accompanied by: Self Is patient in pain?: No Allergies No Known Allergies Allergy (Verified 10/28/23 07:51) Medications ???Medication ???Instructions ???Recorded ???Confirmed ???Type ondansetron 4 mg disintegrating 4 mg PO Q8H PRN nausea and 10/28/23 10/28/23 Rx tablet vomiting #30 tabs semaglutide (weight loss) 0.25 0.25 mg (0.5 mL) subcut QWEEK #2 mL 10/28/23 10/28/23 Rx mg/0.5 mL subcutaneous pen injector (Wegovy) [facility] Medical History Metabolic syndrome Health care maintenance Morbid obesity Elevated liver enzymes Elevated fasting blood sugar Hypertension Obesity (BMI 30-39.9) Hyperlipidemia Left foot pain Surgical History History of wisdom tooth extraction, class II edentulism Family History Father Heart disease Diabetes Grandfather Endometriosis Heart disease Grandmother Cancer Social History (Updated 10/28/23 @ 07:56 by Angela Beebe MA) Smoking Status: Never smoker Tobacco: How many years used: 15 alcohol intake: never details: on ocassion substance use type: does not use caffeine: No what type of physical activity do you participate in: walking, running, yoga and weight training frequency: 3-4 times per week duration: 45-60 minutes/day seatbelt use: always do you feel safe at home: Yes additional social history: Pt denies vaping, denies edibles, denies aspirin use, denies ibuprofen HPI HPI Chief Complaint: weight loss concerns Details: DON CLARK, is a 43 F who presents to the office today for an acute visit to discuss weight loss. She reports she is struggled with her weight for several years.She states past 2 months she has increased her physical exercise and is attending the gym 3 to 4 days/week, she performs 20 minutes of cardio including walking on the treadmill or elliptical and follows this by 20 to 30 minutes of weightlifting. She states that she has not had any changes in her weight. She reports that she is struggling with her diet and snacks frequently throughout the day even though she knows that she should not. She reports that she continues to eat foods that are not healthy and has cravings. She states in the past she was prescribed Mounjaro for weight loss and had 1 dose and subsequently developed nausea therefore she did not continue. She states she also has tried the [facility] weight program to the hospital and did not find this helpful, she has also met with the dietitian without success. She would like to consider an additional medication for weight loss adjunct therapy. ROS Const Constitutional: No body ache, chills, excessive sweating, fatigue, fever(s), frequent falls, headache(s), snoring, weakness or change in appetite Eyes Eyes: No blurry vision, change in vision, eye pain or Light sensitivity ENT ENT: No abnormal hearing, ear or mastoid pain, tinnitus, nasal congestion, headache(s), neck pain or sore throat Resp Respiratory: No cough, shortness of breath, snoring or wheezing Cardio Cardiology: No chest pain at rest, chest pain with exertion, excessive sweating, dyspnea on exertion, lightheadedness, orthopnea or palpitations Gastro GI: No abdominal pain, change in bowel habits, constipation, cramping, diarrhea, nausea/dyspepsia or vomiting Genitourinary-Female : No burning urination, painful urination, urinary incontinence or urinary frequency Musc Musculoskeletal: No abnormal gait, joint pain, back pain, limited range of motion, muscle weakness, neck pain or numbness Skin Skin: No dry skin, redness, lesions, itchy eyes, rash or wounds Neuro Neurology: No abnormal gait, abnormal hearing, weakness, frequent falls, headache(s), memory loss or numbness Psych Psychiatric: No anxiety, No change in appetite, No depression, No memory loss and No Thoughts of harming yourself/Others Endo Endocrine: No cold in (more content not included)... Normal [facility] T4 Free Directon 10-28-2023 T4 FREE DIRECT 1.00 ng/dL Normal 0.76-1.46 [facility] Comment on above: Performed By: #### L 501.9520, L501.9985, L506.0400 #### [facility] [address] [place], [address] Thyroid Stim Hormone (TSH)on 10-28-2023 TSH 2.56 uIU/mL Normal 0.358-3.74 [facility] Comment on above: Performed By: #### L 501.9520, L501.9985, L506.0400 #### [facility] [address] [place], [address] Urinalysis, Employeeon 10-27 BILIRUBIN URINE Normal Negative [facility] Comment on above: Result Comment: . Performed By: #### L 500.2900, L400.0100, L100.0200 #### [facility] [address] [place], [address] Clarity (U) Normal Clear [facility] Comment on above: Result Comment: . Performed By: #### L 500.2900, L400.0100, L100.0200 #### [facility] [address] [place], [address] Color (U) Normal Yellow [facility] Comment on above: Result Comment: . Performed By: #### L 500.2900, L400.0100, L100.0200 #### [facility] [address] [place], [address] GLUCOSE, UR Normal Normal [facility] Comment on above: Result Comment: . Performed By: #### L 500.2900, L400.0100, L100.0200 #### [facility] [address] [place], [address] KETONE UR Normal Negative [facility] Comment on above: Result Comment: . Performed By: #### L 500.2900, L400.0100, L100.0200 #### [facility] [address] [place], [address] LEUK ESTERASE Normal Negative [facility] Comment on above: Result Comment: . Performed By: #### L 500.2900, L400.0100, L100.0200 #### [facility] [address] [place], [address] Nitrite Ql (U) Normal Negative [facility] Comment on above: Result Comment: . Performed By: #### L 500.2900, L400.0100, L100.0200 #### [facility] [address] [place], [address] OCCULT BLOOD-UR Normal Negative [facility] Comment on above: Result Comment: . Performed By: #### L 500.2900, L400.0100, L100.0200 #### [facility] [address] [place], [address] pH UR Normal 5.0 - 8.0 [facility] Comment on above: Result Comment: . Performed By: #### L 500.2900, L400.0100, L100.0200 #### [facility] [address] [place], [address] PROT DIPSTX Normal Negative [facility] Comment on above: Result Comment: . Performed By: #### L 500.2900, L400.0100, L100.0200 #### [facility] [address] [place], [address] SP.GR. DIPSTX Normal 1.002-1.030 [facility] Comment on above: Result Comment: . Performed By: #### L 500.2900, L400.0100, L100.0200 #### [facility] [address] [place], [address] UR Preservative Normal [facility] Comment on above: Result Comment: . Performed By: #### L 500.2900, L400.0100, L100.0200 #### [facility] [address] [place], [address] UROBILI Normal Normal [facility] Comment on above: Result Comment: . Performed By: #### L 500.2900, L400.0100, L100.0200 #### [facility] [address] [place], [address] Plastic Surgery Visit Report on 06-09-2023 Plastic Surgery Visit Report [facility] Plastic Reconstructive Surgery [address] [place] [address] OFFICE VISIT Date of Service: 06/09/23 MR#: [id number] Acct: [id number] Name: DON JONES MOISÉS Rep #: [id number] : 1980 Provider: Dr. Radha coppola MD Age/Sex: 42/F Location: [facility] Status: Signed Intake Vital Signs 04/20/23 13:49 05/28/23 07:50 06/09/23 12:05 Height 5 ft 6 in 5 ft 5 in 5 ft 5 in Weight: 237 lb BMI 39.4 BP 139/94 H Blood Pressure Location Lt brachial Position Sitting Respiration 16 Pulse 89 Temp 97.5 F L Temp Source Oral Pulse Oximetry (%) 96 Oxygen Delivery Method room air Intake Visit Reasons: Post op R post shoulder lesion) 05/28 Chief Complaint: lesion on right shoulder Is patient in pain?: No Allergies No Known Allergies Allergy (Verified 06/09/23 12:06) Medications cephalexin 500 mg capsule 500 mg PO BID 7 days #14 caps 05/28/23 [Rx Confirmed 06/09/23] Subjective Details: Eboni comes in for recheck of the lesion removed from her posterior right shoulder. She denies any problems. Objective Details: The incision of the posterior right shoulder is well-approximated. There is no evidence of infection. Reinforcing sutures are removed. A thin layer of antibiotic ointment is applied to the site. The pathology was reviewed which revealed a benign dermatofibroma. No further intervention is necessary. Further wound care was reviewed with her and she was cautioned about extensive use of her shoulder which could cause widening or opening of the incision. Coding Level of Care Code Global Post Op Diagnoses Dermatofibroma of back D23.5 [facility] Medical History (Updated 06/09/23 @ 16:[address] Radha Riojas MD) Elevated fasting blood sugar Elevated liver enzymes Health care maintenance Hyperlipidemia Hypertension Left foot pain Metabolic syndrome Morbid obesity Obesity (BMI 30-39.9) Surgical History History of wisdom tooth extraction, class II edentulism Family History Father Heart disease Diabetes Grandfather Endometriosis Heart disease Grandmother Cancer Social History (Updated 04/20/23 @ 13:52 by Gabby Benitez) Smoking Status: Never smoker Tobacco: How many years used: 15 alcohol intake: never details: on ocassion substance use type: does not use caffeine: No what type of physical activity do you participate in: walking seatbelt use: always do you feel safe at home: Yes additional social history: Pt denies vaping, denies edibles, denies aspirin use, denies ibuprofen Assessment and Plan (No Qualifiers) Assessment and Plan (1) Dermatofibroma of back: Status: Acute Plan Details Additional Comments: I will see her back as needed. She is encouraged to call with any problems or questions. 06/09/23 1653 Date Radha Riojas MD Cosigner Signature: Date (if applicable) CC: Normal [facility] Discharge Instructionon 05-08 Discharge Instruction [facility] Medical Records Department [address] [place] [address] Instructions for Home/Discharge Instructions 05/28/23 104 MR#: [id number] Acct: [id number] Name: DON JONES MOISÉS Rep #: [id number] : 1980 42 From: Radha Riojas MD PCP: Dr. Tim Fuentes MD [place] [facility] [place] Instructions Dressing / Incision Additional Dressing/Incision Instructions:: May shower over the area, but do not scrub. If the dressing falls off, you may shower over the area and replace a bandaid daily. Take the oral antibiotic (Keflex) 2 x a day until finished. Sleep in a recliner position for the next 2-3 nights to avoid pressure or stretching the area. Follow Up Care Please Follow Up With: Radha Riojas MD When: in 1-2 weeks Test Results: Test results from this visit will be discussed in further detail at your follow-up appointment, if applicable. Discharge Plan Admission Attending Provider: Radha Riojas Primary Care Provider: Tim Fuentes Discharge Orders/Prescriptions Prescriptions: New cephalexin 500 mg capsule 500 mg PO BID 7 Days Qty: 14 0RF Referrals / Follow Up: Tim Fuentes MD [Primary Care Provider] - Disposition Disposition (needs filled in before D/C Order can be placed): Home, Self Care 05/28/23 1051 Radha Riojas MD CC: Dr. Tim Fuentes MD Signed [facility] Operative Reporton Operative Report [facility] Medical Records Department [address] [place] [address] Operative Report 05/28/23 1047 MR#: [id number] Acct: [id number] Name: DON JONES MOISÉS Rep #: [id number] : 1980 42 From: Radha Riojas MD PCP: Dr. Tim Fuentes MD [place] [facility] Location: [place] [address] Problems Associated Problem List Diagnoses (1) Neoplasm of uncertain behavior of skin: Report of Operation Date of Procedure: 05/28/23 Pre-Operative Diagnosis: lesion of right posterior shoulder Post-Operative Diagnosis: same Surgery/Procedure Performed:: Excision lesion right posterior shoulder (2.5cm) with intermediate closure Surgeon: Radha Riojas Type of Anesthesia: Local Specimen's removed: skin lesion Estimated Blood Loss (mL): minimal Description of Procedure: The patient presents with a growing or changing lesion of the right posterior shoulder. She presents for excision of the lesion with submission for pathologic evaluation. Procedure: The patient was brought to the operating room and placed on the operating room table in left lateral decubitus position. The right posterior shoulder was prepped and draped in the usual sterile fashion. We initially began with injecting the periphery of the site with 1% Xylocaine with epinephrine buffered with sodium bicarb. Following this, the lesion is excised and passed off the operative field to be sent to pathology. Hemostasis is controlled with cautery. Wound closure is then accomplished using a 3-0 Monocryl suture in the subcutaneous tissue and dermis using [id number] sutures. Skin edges are approximated with a running subcuticular Monocryl suture. Further reinforcement the closure is done with interrupted Prolene suture. Dermabond and Steri- Strips are placed on the wound along with a Tegaderm. She tolerated the procedure well was taken to the recovery area in an awake and stable condition. Needle and sponge counts are correct. Complications None Admit VTE Documentation VTE Mechan Device Prophylaxis: None Reason prophylaxis not ordered:: Treatment Not Indicated 05/28/23 1051 Cosigner Signature (if applicable): CC: Dr. Tim Fuentes MD; Dr. Radha Riojas MD Signed Normal [facility] Surgery Specimen Level Chao 05-28-2023 Surgery Specimen Level IV Patient Age/Sex Location Account Attending Physician DON JONES 42/F [facility] [id number] [place]. Radha Riojas MD Specimen: [id number] Received: 05/28/23 Status: SHAYNA Rajan Num: [id number] Spec Type: Lesion Subm Dr: Dr. Radha Riojas MD HEADER OPERATION: Excision lesion right posterior shoulder (2.5 cm) PRE-OP DIAGNOSIS: Neoplasm of shoulder TISSUE SUBMITTED: Right posterior shoulder lesion MICROSCOPIC DIAGNOSIS Right posterior shoulder lesion, excisional biopsy: Dermatofibroma. SWETA:bhavani 06/01/2023 MICROSCOPIC DESCRIPTION Slides are reviewed. GROSS DESCRIPTION Received in fixative is one container labeled with the patient's name and designated "right posterior shoulder lesion." The specimen consists of a round piece of wallace-brown skin measuring 1.3 x 1.3 cm and up to 0.4 cm in thickness. The specimen is inked, serially sectioned and submitted entirely in one cassette. / SJ:bhavani 05/28/2023 TC:1 CPT: 03165 Patient Age/Sex Location Account Attending Physician DON JONES 42/F [facility] [id number] Dr. Radha Riojas MD Signed (signature on file) Dr. Aakash Castro MD 06/01/23 1251 Normal [facility] Comment on above: Performed By: #### L 501.9520, L501.9985, L506.0400 #### [facility] [address] [place], [place], [address] Plastic Surgery Visit Report on 04-20-2023 Plastic Surgery Visit Report [facility] Plastic Reconstructive Surgery [address], [address] [place] [address] OFFICE VISIT Date of Service: 04/20/23 MR#: [id number] Acct: [id number] Name: LAQUITA CLARKDON MOISÉS Rep #: [id number] : 1980 Provider: Dr. Radha coppola MD Age/Sex: 42/F Location: [facility] Status: Signed Intake Vital Signs 03/17/22 13:02 04/20/23 13:49 Height 5 ft 6 in 5 ft 6 in Weight: 237 lb BMI 38.2 BP 141/102 H Blood Pressure Location Rt brachial Position Sitting Respiration 18 Pulse 77 Pulse Source NIBP Temp 97.8 F Temp Source Oral Pulse Oximetry (%) 98 Oxygen Delivery Method room air Intake Visit Reasons: SPOT ON BACK RIGHT SIDE OF [facility] Chief Complaint: lesion on right shoulder Is patient in pain?: No Allergies No Known Allergies Allergy (Verified 04/20/23 13:50) [facility] Medical History (Updated 04/20/23 @ 15:[address] Radha Riojas MD) Elevated fasting blood sugar Elevated liver enzymes Health care maintenance Hyperlipidemia Hypertension Left foot pain Metabolic syndrome Morbid obesity Obesity (BMI 30-39.9) Surgical History History of wisdom tooth extraction, class II edentulism Family History Father Heart disease Diabetes Grandfather Endometriosis Heart disease Grandmother Cancer Social History (Updated 04/20/23 @ 13:52 by Gabby Benitez) Smoking Status: Never smoker Tobacco: How many years used: 15 alcohol intake: never details: on ocassion substance use type: does not use caffeine: No what type of physical activity do you participate in: walking seatbelt use: always do you feel safe at home: Yes additional social history: Pt denies vaping, denies edibles, denies aspirin use, denies ibuprofen HPI SPOT ON BACK RIGHT SIDE OF [facility] Details: Eboni comes in with a lesion on the right shoulder that has been there for several years. She states that it has gradually increased in size. She believes it may have started from a blemish that she had "picked at". ROS General General: Yes good health; No fatigue, fever(s) or weight loss HENMT HENMT: No rhinitis, sore throat/mouth sore, nasal congestion, contacts or glaucoma Endo Endocrine: No thyroid disease, polydipsia, heat intolerance, cold intolerance, hepatitis or excessive urine Skin Skin: Yes suspicious lesion; No Bleeding, bruising or changing moles Musc Musculoskeletal: No joint pain, joint stiffness, muscle weakness, back pain, osteoarthritis or Muscle aches/ myalgia Neuro Neurological: No headache(s), No lightheadedness and No numbness Cardio Cardiovascular: No chest pain, pacemaker, fatigue or shortness of breat with exertion Psych Psychiatric: No depression, claustrophobia or anxiety Resp Respiratory: No spitting up, shortness of breath, sleep apnea, asthma, emphysema, TB, Cough or Smoker Gastro Gastrointestinal: No diarrhea, constipation, blood in stool, nausea, vomiting or abdominal bloating [place] Hematologic: No anemia, No bleeding and No abnormal bleeding Genitourinary: No urinary frequency, blood in urine or incontinence Exam Const General: cooperative, healthy appearing, no acute distress and well developed Nutritional Appearance: well nourished Orientation: alert [facility] Head: normal to inspection, normocephalic and atraumatic Ears: hearing grossly normal bilaterally Nose: external nose normal Face and sinus: normal facial exam and face symmetric Mouth: lip normal Eyes General: appearance normal, both eyes and all related structures Eyelids: eyelids normal Pupils: PERRL EOM: EOM intact bilaterally Neck Neck: normal visual inspection and no lymphadenopathy Chest Chest palpation inspection: normal inspection of the chest Resp Effort Inspection: normal respiratory effort Auscultation: clear to auscultation bilaterally Cardio Rate: regular rate Rhythm: regular rhythm Heart Sounds: S1 normal and S2 normal GI Inspection: normal to inspection Palpation: soft and nontender Skin General: no rashes or lesions noted Trauma: no lacerations or abrasions Other: Patient with a firm nodular lesion on her right shoulder which is nonelevated and is flush with the surface of the skin. The overlying skin is intact but it is hyperkeratotic. This appears to be C/W dermatofibroma. I recommended excision with submission for pathologic evaluation. Neuro General: patient alert, patient awake and patient oriented x3 Cognition: normal cognition Speech: speech normal Motor: muscle tone normal throughout Sensory Exam: no sensory deficits noted Extrem General: normal to inspection and no pedal edema Psych Appearance: grossly normal Affec (more content not included)... Normal [facility] Absolute lymphocyte countOrd ered By: HEALTH ASSESSMENT on 03-18-2023 Lymphocytes Auto (Unsp spec) [#/Vol] 2.21 10*3/uL 0.83-4.51 [facility] Absolute reticulocyte countO rdered By: HEALTH ASSESSMENT on 03-18-2023 Reticulocytes (Bld) [#/Vol] 0.00 10*3/uL 0-5 [facility] Basophil percentageOrdered B y: HEALTH ASSESSMENT on 03-18-2023 Basophil percentage 3.1 mg/dL 2.5-4.9 [facility] Bilirubin [Mass/Vol] 0.40 mg/dL 0.20-1.00 [facility] Comment on above: For patients on eltr ombopag therapy, use of Dimension [place] TBIL is not recommended. Chloride [Moles/Vol] 107 mmol/L 98-107 [facility] Cholesterol [Mass/Vol] 257 mg/dL <200 [facility] Comment on above: <200 mg/dL Desirable 200-240 mg/dL Borderline >240 mg/dL High Risk Glucose [Mass/Vol] 118 mg/dL 74-106 [facility] Comment on above: Fasting Glucose resu lt from 100 to 125 mg/dL suggests IMPAIRED HOMEOSTASIS per A.D.A. criteria. LDH [Catalytic activity/Vol] 170 U/L 84-246 [facility] Neutrophils (Bld) [#/Vol] 3.7 10*3/uL 2.0-7.7 [facility] Potassium [Moles/Vol] 4.2 mmol/L 3.5-5.1 [facility] Protein [Mass/Vol] 7.0 g/dL 6.4-8.2 [facility] Sodium [Moles/Vol] 138 mmol/L 136-145 [facility] Triglyceride [Mass/Vol] 261 mg/dL <199 [facility] Comment on above: The drugs N-Acetylcy steine and Metamizole may falsely depress this assay.Serum Triglycerides Reference Interval Normal <150 mg/dL Borderline high 150 - 199 mg/dL High 200 - 499 mg/dL Very High > or = 500 mg/dL WBC (Bld) [#/Vol] 6.6 10*3/uL 4.4-11.0 [facility] Blood erythrocytes count (nu mber/volume)Ordered By: HEALTH ASSESSMENT on 03-18-2023 RBC (Bld) [#/Vol] 4.69 10*6/uL 4.2-5.4 [facility] Blood hemoglobin measurement (mass/volume)Ordered By: HEALTH ASSESSMENT on 03-18-2023 Hemoglobin (Bld) [Mass/Vol] 14.0 g/dL 12.0-15.0 [facility] Blood platelet mean volumeOr dered By: HEALTH ASSESSMENT on 03-18-2023 Platelet mean volume (Bld) [Entitic vol] 9.8 fL 6.2-12.0 [facility] Determination of erythrocyte mean corpuscular volume (MCV)Ordered By: HEALTH ASSESSMENT on 03-18-2023 MCV (RBC) [Entitic vol] 91.9 fL 81-99 [facility] Direct bilirubinOrdered By: HEALTH ASSESSMENT on 03-18-2023 Bilirubin.direct [Mass/Vol] 0.10 mg/dL 0.00-0.30 [facility] Hematocrit Auto (Bld) [Volum e fraction]Ordered By: HEALTH ASSESSMENT on 03-18-2023 Hematocrit (Bld) [Volume fraction] 43.1 % 37-47 [facility] - Chemistry and C hemistry - challengeOrdered By: HEALTH ASSESSMENT on 03-18-2023 ALP [Catalytic activity/Vol] 75 U/L 45-117 [facility] ALT [Catalytic activity/Vol] 29 U/L 13-56 [facility] Cholesterol.total/Marisol sterol in HDL [Mass ratio] 6.10 {ratio} [facility] CO2 [Moles/Vol] 28.0 mmol/L 21.0-32.0 [facility] Globulin (S) [Mass/Vol] 3.3 g/dL 2.2-4.2 [facility] Urea nitrogen/Creatinine [Mass ratio] 14.1 mg/mg 10-20 [facility] - Hematology and Cell countsOrdered By: HEALTH ASSESSMENT on 03-18-2023 Erythrocyte distribution width (RBC) [Entitic vol] 40.5 fL 35.1-43.9 [facility] Erythrocyte distribution width (RBC) [Ratio] 12.1 % 11.6-14.6 [facility] MCH (RBC) [Entitic mass] 29.9 pg 27.0-32.0 [facility] Nucleated RBC/100 WBC (Bld) [Ratio] 0 % 0-5 [facility] MCHC Auto (RBC) [Mass/Vol]Or dered By: HEALTH ASSESSMENT on 03-18-2023 MCHC (RBC) [Mass/Vol] 32.5 g/dL 32-36 [facility] No Panel InformationOrdered By: HEALTH ASSESSMENT on 03-18-2023 Estimated GFR (MDRD) Amer 78 mL/min >60 [facility] Comment on above: GFR Calc Estimated GFR (MDRD) Non-Af Amer 65 mL/min >60 [facility] Comment on above: Non- GFR Calc Platelets bldOrdered By: GORDY LT ASSESSMENT on 03-18-2023 Platelets (Bld) [#/Vol] 265 10*3/uL 150-450 [facility] Segmented neutrophils/100 WB C Auto (Bld)Ordered By: HEALTH ASSESSMENT on 03-18-2023 Segmented neutrophils/100 WBC (Bld) 55.9 % 47-70 [facility] Serum or plasma albumin lyric urement (mass/volume)Ordered By: HEALTH ASSESSMENT on 03-18-2023 Albumin [Mass/Vol] 3.7 g/dL 3.2-5.0 [facility] Serum or plasma albumin/glob ulin mass ratioOrdered By: HEALTH ASSESSMENT on 03-18-2023 Albumin/Globulin [Mass ratio] 1.1 {ratio} 0.9-2.4 [facility] Serum or plasma calcium lyric urement (mass/volume)Ordered By: HEALTH ASSESSMENT on 03-18-2023 Calcium [Mass/Vol] 8.7 mg/dL 8.5-10.1 [facility] Serum or plasma cholesterol in HDL measurement (mass/volume)Ordered By: HEALTH ASSESSMENT on 03-18-2023 Cholesterol in HDL [Mass/Vol] 42 mg/dL >40 [facility] Comment on above: The drugs N-Acetylcy steine and Metamizole may falsely depress this assay. Reference Range HDL <40 mg/dL Low HDL Cholesterol HDL >or= 60 mg/dL High HDL Cholesterol Serum or plasma cholesterol in VLDL measurement (mass/volume)Ordered By: HEALTH ASSESSMENT on 03-18-2023 Cholesterol in VLDL [Mass/Vol] 52 mg/dL 5-40 [facility] Serum or plasma creatinine m easurement (mass/volume)Ordered By: HEALTH ASSESSMENT on 03-18-2023 Creatinine [Mass/Vol] 1.00 mg/dL 0.55-1.02 [facility] Comment on above: The validity of the calculated GFR & GFRAA in patients over 70 years has not been determined. Clinical correlation is essential. Serum or plasma low density lipoprotein (LDL) cholesterol measurement (mass/volume)Ordered By: HEALTH ASSESSMENT on 03-18-2023 Cholesterol in LDL [Mass/Vol] 163 mg/dL 0-130 [facility] Serum or plasma urea nitroge n measurement (mass/volume)Ordered By: HEALTH ASSESSMENT on 03-18-2023 Urea nitrogen [Mass/Vol] 14 mg/dL 7-18 [facility] Serum or plasma uric acid me asurement (mass/volume)Ordered By: HEALTH ASSESSMENT on 03-18-2023 Urate [Mass/Vol] 6.3 mg/dL 2.6-6.0 [facility] Comment on above: The drugs N-Acetylcy steine and Metamizole may falsely depress this assay. Thin prep Papanicolaou smear with manual screeningOrdered By: HEALTH ASSESSMENT on 03-18-2023 Thin prep Papanicolaou smear with manual screening 11 U/L 15-37 [facility] Thin prep Papanicolaou smear with manual screening 3 5-15 [facility] Absolute lymphocyte counton 03-16-2022 Lymphocytes Auto (Unsp spec) [#/Vol] 2.58 10*3/uL 0.83-4.51 [facility] Work Phone: Absolute reticulocyte counto n 03-16-2022 Reticulocytes (Bld) [#/Vol] 0.00 10*3/uL 0-5 [facility] Work Phone: Basophil percentageon 2021 Basophil percentage 3.1 mg/dL 2.5-4.9 [facility] Work Phone: Bilirubin [Mass/Vol] 0.50 mg/dL 0.20-1.00 [facility] Work Phone: Comment on above: For patients on eltr ombopag therapy, use of Dimension [place] TBIL is not recommended. Chloride [Moles/Vol] 106 mmol/L 98-107 [facility] Work Phone: Cholesterol [Mass/Vol] 231 mg/dL <200 [facility] Work Phone: Comment on above: <200 mg/dL Desirable 200-240 mg/dL Borderline >240 mg/dL High Risk Glucose [Mass/Vol] 124 mg/dL 74-106 [facility] Work Phone: Comment on above: Fasting Glucose resu lt from 100 to 125 mg/dL suggests IMPAIRED HOMEOSTASIS per A.D.A. criteria. Neutrophils (Bld) [#/Vol] 3.5 10*3/uL 2.0-7.7 [facility] Work Phone: Potassium [Moles/Vol] 3.9 mmol/L 3.5-5.1 [facility] Work Phone: Protein [Mass/Vol] 7.0 g/dL 6.4-8.2 [facility] Work Phone: Sodium [Moles/Vol] 139 mmol/L 136-145 [facility] Work Phone: Triglyceride [Mass/Vol] 355 mg/dL <199 [facility] Work Phone: Comment on above: The drugs N-Acetylcy steine and Metamizole may falsely depress this assay.Serum Triglycerides Reference Interval Normal <150 mg/dL Borderline high 150 - 199 mg/dL High 200 - 499 mg/dL Very High > or = 500 mg/dL WBC (Bld) [#/Vol] 6.8 10*3/uL 4.4-11.0 [facility] Work Phone: Blood erythrocytes count (nu mber/volume)on 03-16-2022 RBC (Bld) [#/Vol] 4.62 10*6/uL 4.2-5.4 [facility] Work Phone: Blood hemoglobin measurement (mass/volume)on 03-16-2022 Hemoglobin (Bld) [Mass/Vol] 14.1 g/dL 12.0-15.0 [facility] Work Phone: Blood platelet mean volumeon 03-16-2022 Platelet mean volume (Bld) [Entitic vol] 9.9 fL 6.2-12.0 [facility] Work Phone: Determination of erythrocyte mean corpuscular volume (MCV)on 03-16-2022 MCV (RBC) [Entitic vol] 91.3 fL 81-99 [facility] Work Phone: Direct bilirubinon 2 Bilirubin.direct [Mass/Vol] 0.08 mg/dL 0.00-0.30 [facility] Work Phone: Hematocrit Auto (Bld) [Volum e fraction]on 03-16-2022 Hematocrit (Bld) [Volume fraction] 42.2 % 37-47 [facility] Work Phone: Laboratory - Chemistry and C hemistry - challengeon 03-16-2022 ALP [Catalytic activity/Vol] 79 U/L 45-117 [facility] Work Phone: [phone] ALT [Catalytic activity/Vol] 83 U/L 13-56 [facility] Work Phone: Cholesterol.total/Marisol sterol in HDL [Mass ratio] 5.80 {ratio} [facility] Work Phone: CO2 [Moles/Vol] 25.0 mmol/L 21.0-32.0 [facility] Work Phone: [phone] Globulin (S) [Mass/Vol] 3.4 g/dL 2.2-4.2 [facility] Work Phone: [phone] Urea nitrogen/Creatinine [Mass ratio] 14.0 mg/mg 10-20 [facility] Work Phone: Laboratory - Hematology and Cell countson 03-16-2022 Erythrocyte distribution width (RBC) [Entitic vol] 39.3 fL 35.1-43.9 [facility] Work Phone: [phone] Erythrocyte distribution width (RBC) [Ratio] 11.8 % 11.6-14.6 [facility] Work Phone: [phone] MCH (RBC) [Entitic mass] 30.5 pg 27.0-32.0 [facility] Work Phone: [phone] Nucleated RBC/100 WBC (Bld) [Ratio] 0 % 0-5 [facility] Work Phone: [phone] MCHC Auto (RBC) [Mass/Vol]on 03-16-2022 MCHC (RBC) [Mass/Vol] 33.4 g/dL 32-36 [facility] Work Phone: No Panel Informationon 03-16 Estimated GFR (MDRD) Amer 78 mL/min >60 [facility] Work Phone: Comment on above: GFR Calc Estimated GFR (MDRD) Non-Af Amer 65 mL/min >60 [facility] Work Phone: Comment on above: Non- GFR Calc Platelets bldon 03-16-2022 Platelets (Bld) [#/Vol] 262 10*3/uL 150-450 [facility] Work Phone: Segmented neutrophils/100 WB C Auto (Bld)on 03-16-2022 Segmented neutrophils/100 WBC (Bld) 51.5 % 47-70 [facility] Work Phone: Serum or plasma albumin lyric urement (mass/volume)on 03-16-2022 Albumin [Mass/Vol] 3.6 g/dL 3.2-5.0 [facility] Work Phone: Serum or plasma albumin/glob ulin mass ratioon 03-16-2022 Albumin/Globulin [Mass ratio] 1.1 {ratio} 0.9-2.4 [facility] Work Phone: Serum or plasma calcium lyric urement (mass/volume)on 03-16-2022 Calcium [Mass/Vol] 8.5 mg/dL 8.5-10.1 [facility] Work Phone: Serum or plasma cholesterol in HDL measurement (mass/volume)on 03-16-2022 Cholesterol in HDL [Mass/Vol] 40 mg/dL >40 [facility] Work Phone: Comment on above: The drugs N-Acetylcy steine and Metamizole may falsely depress this assay. Reference Range HDL <40 mg/dL Low HDL Cholesterol HDL >or= 60 mg/dL High HDL Cholesterol Serum or plasma cholesterol in VLDL measurement (mass/volume)on 03-16-2022 Cholesterol in VLDL [Mass/Vol] 71 mg/dL 5-40 [facility] Work Phone: Serum or plasma creatinine m easurement (mass/volume)on 03-16-2022 Creatinine [Mass/Vol] 1.00 mg/dL 0.55-1.02 [facility] Work Phone: Comment on above: The validity of the calculated GFR & GFRAA in patients over 70 years has not been determined. Clinical correlation is essential. Serum or plasma low density lipoprotein (LDL) cholesterol measurement (mass/volume)on 03-16-2022 Cholesterol in LDL [Mass/Vol] 120 mg/dL 0-130 [facility] Work Phone: Serum or plasma urea nitroge n measurement (mass/volume)on 03-16-2022 Urea nitrogen [Mass/Vol] 14 mg/dL 7-18 [facility] Work Phone: Serum or plasma uric acid me asurement (mass/volume)on 03-16-2022 Urate [Mass/Vol] 6.2 mg/dL 2.6-6.0 [facility] Work Phone: Comment on above: The drugs N-Acetylcy steine and Metamizole may falsely depress this assay. Thin prep Papanicolaou smear with manual screeningon 03-16-2022 Thin prep Papanicolaou smear with manual screening 44 U/L 15-37 [facility] Work Phone: Thin prep Papanicolaou smear with manual screening 8 5-15 [facility] Work Phone: Thin prep Papanicolaou smear with manual screening 206 U/L 84-246 [facility] Work Phone: Whole blood hemoglobin A1c/t otal hemoglobin ratio (mass fraction)on 03-16-2022 HbA1c (Bld) [Mass fraction] 5.9 % 3.8-5.6 [facility] Work Phone: Comment on above: Normal < 5.7 % Predi abetic 5.7 - 6.4 % Diabetic >or= 6.5 % Please note range changes. Laboratory - Microbiology an d Antimicrobial susceptibilityon 06-26-2021 SARS-CoV-2 (COVID-19) RNA DEANA+probe Ql (Unsp spec) Detected [facility] Work Phone: Vital Signs Date Time Vital Sign Value Performing Clinician Sana bowie 05-28-2023 10:18-0500 Diastolic blood pressure 88 mm[Hg] Dr. Tim Fuentes Work Phone: [facility] 05-28-2023 10:18-0500 Systolic blood pressure 130 mm[Hg] Dr. Tim Fuentes Work Phone: [facility] 05-28-2023 07:50-0500 Body height 165.[address] Tim Fuentes Work Phone: [facility] 05-28-2023 07:50-0500 Body mass index (BMI) [Ratio] 39.8 kg/m2 Dr. Tim Fuentes Work Phone: [facility] 05-28-2023 07:50-0500 Body temperature 97.2 [degF] Dr. Tim Fuentes Work Phone: [facility] 05-28-2023 07:50-0500 Body weight 108.[address] Tim Fuentes Work Phone: [facility] 05-28-2023 07:50-0500 Heart rate 93 /min Dr. Tim Fuentes Work Phone: [facility] 05-28-2023 07:50-0500 Respiratory rate 16 /min Dr. Tim Fuentes Work Phone: [facility] 05-28-2023 07:50-0500 SaO2% (BldA) [Mass fraction] 99 % Dr. Tim Fuentes Work Phone: [facility] 04-20-2023 13:49-0500 Body mass index (BMI) [Ratio] 38.2 kg/m2 Dr. Tim Fuentes Work Phone: [facility] 04-20-2023 13:49-0500 Body temperature 97.8 [degF] Dr. Tim Fuentes Work Phone: [facility] 04-20-2023 13:49-0500 Body weight 107.[address] Tim Fuentes Work Phone: [facility] 04-20-2023 13:49-0500 Diastolic blood pressure 102 mm[Hg] Dr. Tim Fuentes Work Phone: [facility] 04-20-2023 13:49-0500 Heart rate 77 /min Dr. Tim Fuentes Work Phone: [facility] 04-20-2023 13:49-0500 Respiratory rate 18 /min Dr. Tim Fuentes Work Phone: [facility] 04-20-2023 13:49-0500 SaO2% (BldA) [Mass fraction] 98 % Dr. Tim Fuentes Work Phone: [facility] 04-20-2023 13:49-0500 Systolic blood pressure 141 mm[Hg] Dr. Tim Fuentes Work Phone: [facility] 03-17-2022 13:02-0400 Body height 167.[address] Tim Fuentes Work Phone: [facility] Work Phone: 03-17-2022 13:02-0400 Body mass index (BMI) [Ratio] 41.3 kg/m2 Dr. Tim Fuentes Work Phone: [facility] Work Phone: 03-17-2022 13:02-0400 Body temperature 98 [degF] Dr. Tim Fuentes Work Phone: [facility] Work Phone: 03-17-2022 13:02-0400 Body weight 116.[address] Tim Fuentes Work Phone: [facility] Work Phone: 03-17-2022 13:02-0400 Diastolic blood pressure 90 mm[Hg] Dr. Tim Fuentes Work Phone: [facility] Work Phone: 03-17-2022 13:02-0400 Heart rate 96 /min Dr. Tim Fuentes Work Phone: [facility] Work Phone: 03-17-2022 13:02-0400 Respiratory rate 14 /min Dr. Tim Fuentes Work Phone: [facility] Work Phone: 03-17-2022 13:02-0400 SaO2% (BldA) [Mass fraction] 98 % Dr. Tim Fuentes Work Phone: [facility] Work Phone: 03-17-2022 13:02-0400 Systolic blood pressure 136 mm[Hg] Dr. Tim Fuentes Work Phone: [facility] Work Phone: 11-18-2021 08:30-0400 Body height 167.[address] Tim Fuentes Work Phone: [facility] Work Phone: 11-18-2021 08:30-0400 Body weight 113.[address] Tim Fuentes Work Phone: [facility] Work Phone: 10-15-2021 08:31-0400 Body height 167.[address] Tim Fuentes Work Phone: [facility] Work Phone: 10-15-2021 08:31-0400 Body weight 112.[address] Tim Fuentes Work Phone: [facility] Work Phone: 09-29-2021 09:18-0400 Body height 167.[address] Tim Fuentes Work Phone: [facility] Work Phone: 09-29-2021 09:18-0400 Body weight 113.[address] Tim Fuentes Work Phone: [facility] Work Phone: 09-02-2021 10:38-0400 Body mass index (BMI) [Ratio] 39.7 kg/m2 Dr. Tim Fuentes Work Phone: [facility] Work Phone: 09-02-2021 10:38-0400 Body temperature 98.2 [degF] Dr. Tim Fuentes Work Phone: [facility] Work Phone: 09-02-2021 10:38-0400 Body weight 111.[address] Tim Fuentes Work Phone: [facility] Work Phone: 09-02-2021 10:38-0400 Diastolic blood pressure 88 mm[Hg] Dr. Tim Fuentes Work Phone: [facility] Work Phone: 09-02-2021 10:38-0400 Heart rate 94 /min Dr. Tim Fuentes Work Phone: [facility] Work Phone: 09-02-2021 10:38-0400 Respiratory rate 18 /min Dr. Tim Fuentes Work Phone: [facility] Work Phone: 09-02-2021 10:38-0400 SaO2% (BldA) [Mass fraction] 98 % Dr. Tim Fuentes Work Phone: [facility] Work Phone: 09-02-2021 10:38-0400 Systolic blood pressure 138 mm[Hg] Dr. Tim Fuentes Work Phone: [facility] Work Phone: 09-02-2021 10:38-0400 Body mass index (BMI) [Ratio] 39.7 kg/m2 Dr. Tim Fuentes Work Phone: [facility] Work Phone: 09-02-2021 10:38-0400 Body temperature 98.2 [degF] Dr. Tim Fuentes Work Phone: [facility] Work Phone: 09-02-2021 10:38-0400 Body weight 111.[address] Tim Fuentes Work Phone: [facility] Work Phone: 09-02-2021 10:38-0400 Diastolic blood pressure 88 mm[Hg] Dr. Tim Fuentes Work Phone: [facility] Work Phone: 09-02-2021 10:38-0400 Heart rate 94 /min Dr. Tim Fuentes Work Phone: [facility] Work Phone: 09-02-2021 10:38-0400 Respiratory rate 18 /min Dr. Tim Fuentes Work Phone: [facility] Work Phone: 09-02-2021 10:38-0400 SaO2% (BldA) [Mass fraction] 98 % Dr. Tim Fuentes Work Phone: [facility] Work Phone: 09-02-2021 10:38-0400 Systolic blood pressure 138 mm[Hg] Dr. Tim Fuentes Work Phone: [facility] Work Phone: Encounters Encounter Date Encounter Type Care Provider Facility Start: 04-07-2024 End: 04-07-2024 ambulatory Tim Ozunae Facility:[facility] Start: 04-03-2024 End: 04-03-2024 ambulatory Dayron HERNANDEZ Facility:[facility] Start: 02-04-2024 End: 02-04-2024 ambulatory Efodinongbe Olegeorgee Facility:[facility] Start: 02-03-2024 End: 02-03-2024 ambulatory Efodinongbe Olegeorgee Facility:[facility] Start: 01-31-2024 ambulatory Efodinongbe Olegeorgee Facili ty:[facility] Start: 12-15-2023 End: 12-15-2023 ambulatory Efodinongbe Laithe Facility:[facility] Start: 10-28-2023 ambulatory Efewtinobe Olegeorgee Facili ty:[facility] Start: 10-28-2023 End: 10-28-2023 ambulatory Efheidibe Laithe Facility:[facility] Start: 10-28-2023 End: 10-28-2023 ambulatory Efodinongbe Laithe Facility:[facility] Start: 06-09-2023 End: 06-09-2023 ambulatory Tim Ozunae Facility:[facility] Start: 05-28-2023 ambulatory Radha Arroyoabdon Facility :[facility] Start: 05-28-2023 Non-patient / Non-visit Dr. Ambika Fuentes Work Phone: [facility] Start: 05-28-2023 End: 05-28-2023 Admission to same day surgery center Dr. Tim Fuentes Work Phone: [facility] Start: 05-28-2023 End: 05-28-[address] Tim Fuentes Work Phone: [facility] Work Phone: Start: 04-20-2023 End: 04-20-[address] [facility] Work Phone: Start: 04-20-2023 End: 04-20-2023 ambulatory Radha Riojas [place] Start: 03-18-[address] Luis Fuentes Work Phone: [facility] Start: 03-17-[address] Tim Fuentes Work Phone: [facility] Start: 03-17-2022 End: 03-17-2022 Encounter for general adult medical examination without abnormal findings Dr. Tim Fuentes Work Phone: [facility] Start: 03-17-2022 End: 03-17-[address] Tim Fuentes Work Phone: [facility] Start: 03-16-2022 End: 03-16-[address] Tim Fuentes Work Phone: [facility] Work Phone: Start: 03-16-2022 End: 03-16-[address] Tim Fuentes Work Phone: [facility] Start: 03-16-[address] [facility] Start: 11-18-2021 End: 12-04-[address] [facility] Start: 10-15-2021 End: 11-04-[address] [facility] Start: 10-01-2021 End: 10-01-[address] Tim Fuentes Work Phone: [facility] Start: 09-29-2021 End: 10-04-[address] Tim Fuentes Work Phone: [facility] Start: 09-02-2021 End: 09-02-[address] Tim Fuentes Work Phone: [facility] Start: 06-26-2021 End: 06-26-[address] Tim Fuentes Work Phone: [facility] Procedures Date Procedure Procedure Detail Performing Clinician Start: 05-28-[address] Luis Fuentes Work Phone: Start: 10-01-[address] Anita Fuentes Work Phone: Start: 10-01-2021 X-ray of both feet Dr. Tim Fuentes Work Phone: Plan of Treatment Date Care Activity Detail Author Start: 05-28-2023 Patient discharge [facility] Start: 09-02-2021 Patient referral [facility] Work Phone: Lipid 1996 panel - S gris or Plasma [facility] Work Phone: MG Breast - bilateral Screening [facility] Work Phone: Patient referral [facility] Work Phone: Payers Date Payer Category Payer Self-pay [id number] 2023 Unknown [id number] 2012 Medicaid [id number] Unknown [id number] Unknown [id number] 2.16.8 [id number] Unknown [id number] 2.16.8 [id number] Unknown [id number] 2.16.8 [id number] Unknown [id number] 2.16.8 [id number] Unknown [id number] 2.16.8 [id number] Unknown [id number] 2.16.8 [id number] Unknown [id number] 2.16.8 [id number] Unknown [id number] 2.16.8 [id number] Unknown [id number] 2.16.8 [id number] Unknown [id number] 2.16.8 [id number] Unknown [id number] 2.16.8 [id number] Unknown [id number] 2.16.8 [id number] Unknown [id number] 2.16.8 [id number] Social History Date Type Detail Facility Start: 09-02-2021 End: 04-20-2023 Tobacco smoking status NHIS Unknown if ever smoked [facility] Start: 1980 Sex Assigned At Female W [facility] Goals Date Patient Goal Desired Activity /State Mental Status Date Assessment Result Facility 05-28-2023 Cognitive function Voice/Name [facility] Work Phone: Clinical Notes 05-28-2023 Note Date & Type Note Facility 05-28-2023 Procedure note [facility] 05-28-2023 Note [facility] Medical Records Department [address] [place] [address] History Physical Exam 05/28/23 0956 MR#: [id number] Acct: [id number] Name: DON JONES MOISÉS Rep #: [id number] : 1980 42 From: Radha Riojas MD PCP: Dr. Tim Fuentes MD Status:[facility] Location: [place] [address] HPI - General General Date of Service: 05/28/23 Chief Complaint: Lesion of right shoulder HPI Narrative DON CLARK, is a 42 F who presents with a progressively growing lesion of the right posterior shoulder. She presents for excision of the site and submission for pathologic evaluation. [facility] Medical History (Updated 04/20/23 @ 15:[address] Radha Riojas MD) Elevated fasting blood sugar Elevated liver enzymes Health care maintenance Hyperlipidemia Hypertension Left foot pain Metabolic syndrome Morbid obesity Obesity (BMI 30-39.9) Home Medications NK 05/28/23 [History Last Taken Unknown] Allergy/AdvReac Type Severity Reaction Status Date / Time No Known Allergies Allergy Verified 05/28/23 07:49 Family History Father Heart disease Diabetes Grandfather Endometriosis Heart disease Grandmother Cancer Surgical History History of wisdom tooth extraction, class II edentulism Social History (Updated 04/20/23 @ 13:52 by Gabby Benitez) Smoking Status: Never smoker Tobacco: How many years used: 15 alcohol intake: never details: on ocassion substance use type: does not use caffeine: No what type of physical activity do you participate in: walking seatbelt use: always do you feel safe at home: Yes additional social history: Pt denies vaping, denies edibles, denies aspirin use, denies ibuprofen Vital Signs Vital Signs Vital Signs: 05/28/23 07:50 05/28/23 07:50 Temperature 97.2 F L Temperature Source Temporal Pulse Rate 93 Respiratory Rate 16 Respiratory Pattern Normal Blood Pressure 158/115 H Blood Pressure Mean 129 Blood Pressure Source Monitor Blood Pressure Position Semi-Fowlers Pulse Ox 99 Oxygen Delivery Method Room Air Weight Weight: 239 lb 6.752 oz Body Mass Index (BMI) 39.8 Physical Exam Const alert, oriented x3, no apparent distress, average body habitus and well nourished General Appearance: cooperative and well developed Orientation / Consciousness: oriented to person, oriented to place and oriented to time HEENT head/scalp atraumatic, external ears normal and external nose normal Head and Scalp: normal to inspection, normocephalic, atraumatic and abrasion Face and Sinus: normal facial exam and face symmetric Nose: external nose normal External Ear: external ears normal External Auditory Canal: EAC's normal Mouth: lips normal Eyes PERRL, EOMs intact bilaterally and conjunctivae normal General Eye: normal appearance of both eyes Periorbital: periorbital findings normal Eyelid: eyelids normal Conjunctiva: conjunctiva normal Pupil: PERRL Neck full ROM Lymph Lymphatic: no lymphadenopathy noted Chest inspection of chest normal Breast/Axilla Palpation: no axillary lymphadenopathy Resp normal respiratory effort, normal air movement and clear to auscultation bilaterally Auscultation: clear to auscultation bilaterally Cardio regular rate, regular rhythm, S1 normal heart sound, S2 normal heart sound and no murmurs Rate: regular rate Rhythm: regular rhythm GI soft to palpation and non-tender Extremity normal to inspection and full ROM General Extremity: normal exam except as noted Skin Skin Narrative: Pigmented firm intradermal skin lesion of the posterior right shoulder General Skin Exam: turgor normal Neuro oriented x3, CN's II-XII intact bilaterally, moves all extremities, no focal motor deficits and no sensory deficits noted Sensorium / Orientation: awake, alert, oriented to person, oriented to place and oriented to time Speech: speech normal Gait (Neuro): normal gait Psych mental status grossly normal Attention / Concentration: concentration grossly intact Memory / Cognition: memory grossly intact Assessment Plan Assessment/Plan (1) Neoplasm of uncertain behavior of skin: PLAN: Plan For excision skin lesion and submission for pathologic evaluation. 05/28/23 4840 Cosigner Signature (if applicable): CC: Dr. Tim Fuentes MD; Dr. Radha Riojas MD Signed [facility] Chief complaint+Reason for visit Narrative Reason for Visit Hyperlipidemia Left foot pain Obesity (BMI 30-39.9) Hypertension [facility] Work Phone: Chief complaint+Reason for visit Narrative* Chief Complaint CHECK UP, WANTS REFE RRALS OBESITY PLANTAR FASCITIS/HALLUS VULGUNS/ANKLE INSTABILITY OBESITY Reason for Visit Hyperlipidemia Left foot pain Obesity (BMI 30-39.9) [facility] Work Phone: Chief complaint+Reason for visit Narrative* Chief Complaint CHECK UP, WANTS REFE RRALS OBESITY PLANTAR FASCITIS/HALLUS VULGUNS/ANKLE INSTABILITY OBESITY OBESITY Reason for Visit Hyperlipidemia Left foot pain Obesity (BMI 30-39.9) [facility] Work Phone: Discharge summary Author Radha Riojas [facility] May 28, 2023 10:51am Note Date/Time May 28, 2023 10:46am [facility] Medical Records Department [address] [place] [address] Instructions for Home/Discharge Instructions 05/28/23 1043 MR#: [id number] Acct: [id number] Name: DON JONES MOISÉS Rep #: [id number] : 1980 42 From: Radha Riojas MD PCP: Dr. Tim Fuentes MD Status:[facility] Discharge Instructions Dressing / Incision Additional Dressing/Incision Instructions:: May shower over the area, but do notscrub. If the dressing falls off, you may shower over the area and replace a bandaid daily. Take the oral antibiotic (Keflex) 2 x a day until finished. Sleep in a recliner position for the next 2-3 nights to avoid pressure or stretching the area. Follow Up Care Please Follow Up With: Radha Riojas MD When: in 1-2 weeks Test Results: Test results from this visit will be discussed in further detail at your follow- up appointment, if applicable. Discharge Plan Admission Attending Provider: Radha Riojas Primary Care Provider: Tim Fuentes Discharge Orders/Prescriptions Prescriptions: New cephalexin 500 mg capsule 500 mg PO BID 7 Days Qty: 14 0RF Referrals / Follow Up: Tim Fuentes MD [Primary Care Provider] - Disposition Disposition (needs filled in before D/C Order can be placed): Home, Self Care 05/28/23 1051<Electronically signed by Radha Riojas MD>Radha Riojas MD CC: Dr. Tim Fuentes MD ~ Signed [facility] Work Phone: Evaluation note* Diagnosis Onset Date Resolution Status Hyperlipidemia acute Left foot pain acute Obesity (BMI 30-39.9) acute Hypertension [facility] Work Phone: Evaluation note* Diagnosis Onset Date Resolution Status Elevated fasting blood sugar acute Elevated liver enzymes acute Health care maintenance acut e Hyperlipidemia acute Metabolic syndrome acute Morbid obesity acute Hypertension [facility] Work Phone: Evaluation note* Diagnosis Onset Date Resolution Status Neoplasm of uncertain behavior of skin acute Neoplasm of uncertain behavior of skin acute [facility] Work Phone: History and physical note Author Radha Riojas [facility] May 28, 2023 9:59am Note Date/Time May 28, 2023 9:59am [facility] Medical Records Department [address] [place] [id number] History & Physical Exam 05/28/23 0956 MR#: [id number] Acct: [id number] Name: DON JONES MOISÉS Rep #: [id number] : 1980 42 From: Radha Riojas MD PCP: Dr. Tim Fuentes MD Status:[facility] Location: [place] [address] HPI - General General Date of Service: 05/28/23 Chief Complaint: Lesion of right shoulder HPI Narrative DON CLARK, is a 42 F who presents with a progressively growing lesion of the right posterior shoulder. She presents for excision of the site and submission for pathologic evaluation. [facility] Medical History (Updated 04/20/23 @ 15:[address] Radha Riojas MD) Elevated fasting blood sugar Elevated liver enzymes Health care maintenance Hyperlipidemia Hypertension Left foot pain Metabolic syndrome Morbid obesity Obesity (BMI 30-39.9) Home Medications NK 05/28/23 [History Last Taken Unknown] Allergy/AdvReac Type Severity Reaction Status Date / Time No Known Allergies Allergy Verified 05/28/23 07:49 Family History Father Heart disease Diabetes Grandfather Endometriosis Heart disease Grandmother Cancer Surgical History History of wisdom tooth extraction, class II edentulism Social History (Updated 04/20/23 @ 13:52 by Gabby Benitez) Smoking Status: Never smoker Tobacco: How many years used: 15 alcohol intake: never details: on ocassion substance use type: does not use caffeine: No what type of physical activity do you participate in: walking seatbelt use: always do you feel safe at home: Yes additional social history: Pt denies vaping, denies edibles, denies aspirin use, denies ibuprofen Vital Signs Vital Signs Vital Signs: 05/28/23 07:50 05/28/23 07:50 Temperature 97.2 F L Temperature Source Temporal Pulse Rate 93 Respiratory Rate 16 Respiratory Pattern Normal Blood Pressure 158/115 H Blood Pressure Mean 129 Blood Pressure Source Monitor Blood Pressure Position Semi-Fowlers Pulse Ox 99 Oxygen Delivery Method Room Air Weight Weight: 239 lb 6.752 oz Body Mass Index (BMI) 39.8 Physical Exam Const alert, oriented x3, no apparent distress, average body habitus and well nourished General Appearance: cooperative and well developed Orientation / Consciousness: oriented to person, oriented to place and oriented to time HEENT head/scalp atraumatic, external ears normal and external nose normal Head and Scalp: normal to inspection, normocephalic, atraumatic and abrasion Face and Sinus: normal facial exam and face symmetric Nose: external nose normal External Ear: external ears normal External Auditory Canal: EAC's normal Mouth: lips normal Eyes PERRL, EOMs intact bilaterally and conjunctivae normal General Eye: normal appearance of both eyes Periorbital: periorbital findings normal Eyelid: eyelids normal Conjunctiva: conjunctiva normal Pupil: PERRL Neck full ROM Lymph Lymphatic: no lymphadenopathy noted Chest inspection of chest normal Breast/Axilla Palpation: no axillary lymphadenopathy Resp normal respiratory effort, normal air movement and clear to auscultation bilaterally Auscultation: clear to auscultation bilaterally Cardio regular rate, regular rhythm, S1 normal heart sound, S2 normal heart sound and no murmurs Rate: regular rate Rhythm: regular rhythm GI soft to palpation and non-tender Extremity normal to inspection and full ROM General Extremity: normal exam except as noted Skin Skin Narrative: Pigmented firm intradermal skin lesion of the posterior right shoulder General Skin Exam: turgor normal Neuro oriented x3, CN's II-XII intact bilaterally, moves all extremities, no focal motor deficits and no sensory deficits noted Sensorium / Orientation: awake, alert, oriented to person, oriented to place andoriented to time Speech: speech normal Gait (Neuro): normal gait Psych mental status grossly normal Attention / Concentration: concentration grossly intact Memory / Cognition: memory grossly intact Assessment & Plan Assessment/Plan (1) Neoplasm of uncertain behavior of skin: PLAN: Plan For excision skin lesion and submission for pathologic evaluation. 05/28/23 0971 <Electronically signed by Radha Riojas MD> Cosigner Signature (if applicable): CC: Dr. Tim Fuentes MD; Dr. Radha Riojas MD~ Signed [facility] Work Phone[facility]charge instructions Additional Instructions Implant Used?: [facility] Work Phone: Family History No Family History Records Found Relationship Condition Age at Onset Recorded Date/T thi father Cardiac disease Unknown Diabetes mellitus Unknown grandfather Endometriosis Unknown Cardiac disease Unknown grandmother Malignant neoplasm Unknown Chief Complaint and Reason for Visit Chief Complaint [employer]WORK PHYSICAL Reason for Visit Elevated fasting blo od sugar Elevated liver enzymes Health care maintenance Hyperlipidemia Metabolic syndrome Morbid obesity Hypertension Chief Complaint 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 Tim Fuentes MD Family Provider Active Dr. Tim Fuentes MD Primary Care Provider Active Team Status: Inactive Member Role Status Dates Dr. Tim Fuentes MD Primary Care Provider, Refer ring Provider Active Dr. Radha Riojas MD Attending Provider Active Team Status: Active Member Role Status Dates Dr. Tim Fuentes MD Primary Care Provider Active Dr. Radha Riojas MD Attending Provid er, Referring Provider, Other Provider Active Team Status: Active Member Role Status Dates Dr. Tim Fuentes MD Primary Care Provider Active Health Risk Assessment Attending Provider Active Team Status: Inactive Member Role Status Dates Dr. Tim Fuentes MD Primary Care Provider Active Dr. Radha Riojas MD Attending Provider, Referring Provider Active INFORMATION SOURCE (unrecogn ized section and content) DATE CREATED AUTHOR 04/07/2024 [facility] FOR RECORDS PERTAINING TO PATIENTS WHO ARE OR HAVE BEEN ENROLLED IN A CHEMICAL DEPENDENCY/SUBSTANCEABUSE PROGRAM, SOME INFORMATION MAY BE OMITTED. This clinical summary was aggregated from multiple sources. Caution should be exercised in using it in the provision of clinical care. This summary normalizes information from multiple sources, and as a consequence, information in this document may materially change the coding, format and clinical context of patient data. In addition, data may be omitted in some cases. CLINICAL DECISIONS SHOULD BE BASED ON THE PRIMARY CLINICAL RECORDS. [employer] provides no warranty or guarantee of the accuracy or completeness of information in this document.
== END | disposition home or self-care (01) ==
LOC: LAB 12:46
PROVIDERS: PCP Nurse Practitioner Family; Visit Provider Nurse Practitioner Family
DX: R73.01 Impaired fasting glucose (principal)
CPT/HCPCS: 83036